=== PATIENT | female | born 1965 | race Caucasian/White ===

== ENCOUNTER 2020-07-04 15:24 | Outpatient (REF) | payer MEDICARE, MEDICAID, SELFPAY ==
[2020-07-04 18:03] LABS: Hematocrit 44.2 % (37-47); Hemoglobin 14.4 g/dl (12.0-16.0); Mean Corpuscular HGB Conc 32.6 g/dl (31.0-35.0); Mean Corpuscular Hemoglobin 31.2 pg (27.0-33.0); Mean Corpuscular Volume 95.9 fL (80-98); Mean Platelet Volume 10.5 fL (9.4-12.3); Platelet Count 266 X10*3/uL (160-400); Red Blood Count 4.61 X10*6/uL (4.20-5.50); Red Cell Distribution Width 12.2 % (11.0-16.0); White Blood Count 7.9 X10*3/uL (4.8-10.8)
[2020-07-04 18:23] LABS: Alanine Aminotransferase 17 U/L (0-31); Albumin Level 4.4 g/dL (3.5-5.0); Alkaline Phosphatase 90 U/L (39-117); Anion Gap 11 (12-20); Aspartate Amino Transferase 17 U/L (5-31); Bilirubin Total 0.3 mg/dL (0.0-1.0); Blood Urea Nitrogen 18 mg/dL (9-16); Calcium 9.1 mg/dL (8.4-10.2); Carbon Dioxide 31 mmol/L (22-29); Chloride 102 mmol/L (96-108); Cholesterol 238 mg/dL; Estimated Glomerular Filt Rate > 60; Glucose Fasting 91 mg/dL (60-99); HDL Cholesterol 58 mg/dL; LDL Cholesterol Calculated 136 mg/dl; Potassium 4.3 mmol/L (3.3-5.1); Sodium 140 mmol/L (135-145); Total Protein 7.1 g/dL (6.5-8.0); Triglycerides 220 mg/dL
[2020-07-06 08:24] LABS: SARS COV2 IgG Negative (Negative)
== END 2020-07-04 15:25 | disposition home or self-care (01) ==
LOC: HO.MANLDS 15:24
PROVIDERS: PCP Internal Medicine; Visit Provider Internal Medicine
DX: J45.909 Unspecified asthma, uncomplicated (principal); E78.00 Pure hypercholesterolemia, unspecified; R50.9 Fever, unspecified; Z01.84 Encounter for antibody response examination
CPT/HCPCS: 36415; 80053; 80061; 85027; 86769

== ENCOUNTER 2020-11-12 07:54 | Outpatient (REF) | payer MEDICARE, MEDICAID, SELFPAY ==
--- NOTE | ~2020-11-12 | US_ITS ---
EXAMINATION: US RETROPERITONEAL LIMITED (RENAL ONLY) CLINICAL INFORMATION: Renal stones. COMPARISON: Renal ultrasound 12/31/2019 and 01/03/2019. KUB 12/06/2018 and 11/15/2018. CT abdomen and pelvis 10/30/2018. TECHNIQUE: Real-time imaging of the kidneys. FINDINGS: RIGHT KIDNEY: 11.2 x 4.3 x 5.4 cm (SAG x AP x TRV). The kidney is normal in size, contour, and echogenicity. Renal cortical thickness is normal. No calculi or focal parenchymal lesions. No hydronephrosis. LEFT KIDNEY: 12.3 x 5.2 x 4.6 cm (SAG x AP x TRV). The kidney is normal in size, contour, and echogenicity. Renal cortical thickness is normal. No focal parenchymal lesions or hydronephrosis. There is an echogenic stone or calcification in the upper pole measuring 3 x 3 mm and the lower pole measuring 3 x 3 mm. There is no shadowing or caliectasis. US/US renal BI IMPRESSION: Small echogenic calcification or tiny stone in the upper and lower pole left kidney. No caliectasis. The right kidney is unremarkable.
== END 2020-11-12 07:55 | disposition home or self-care (01) ==
LOC: HO.US 07:54
PROVIDERS: PCP Internal Medicine; Visit Provider Urology
DX: N20.0 Calculus of kidney (principal)
CPT/HCPCS: 76775

== ENCOUNTER → 2020-12-17 13:11 | Outpatient (BNVA) | payer MEDICARE, MEDICAID, SELFPAY | PROVIDERS: PCP Internal Medicine; Visit Provider Urology | CPT/HCPCS: Q3014 ==

== ENCOUNTER 2021-02-20 10:06 | Outpatient (REF) | payer MEDICARE, MEDICAID, SELFPAY ==
[2021-02-20 14:10] LABS: MANUAL DIFF FLAG NO
[2021-02-20 14:26] LABS: Alanine Aminotransferase 26 U/L (0-31); Albumin Level 4.3 g/dL (3.5-5.0); Alkaline Phosphatase 58 U/L (39-117); Anion Gap 13 (12-20); Aspartate Amino Transferase 17 U/L (5-31); Bilirubin Total 0.4 mg/dL (0.0-1.0); Blood Urea Nitrogen 20 mg/dL (9-16); Calcium 9.7 mg/dL (8.4-10.2); Carbon Dioxide 28 mmol/L (22-29); Chloride 104 mmol/L (96-108); Estimated Glomerular Filt Rate > 60; Glucose Fasting 96 mg/dL (60-99); Potassium 4.4 mmol/L (3.3-5.1); Sodium 141 mmol/L (135-145); Total Protein 6.9 g/dL (6.5-8.0)
[2021-02-20 14:30] LABS: Basophils Percent Auto 0.1 % (0-2); Eosinophils Percent Auto 0.1 % (0-4); Hematocrit 43.7 % (37-47); Hemoglobin 14.4 g/dl (12.0-16.0); Imm Gran Abs Auto 0.03 X10*3/uL (0.00-0.03); Imm Gran Pct Auto 0.4 % (0.0-0.4); Lymphocytes Absolute Auto 1.6 X10*3/uL (1.2-4.9); Lymphocytes Percent Auto 19.6 % (20-40); Mean Corpuscular Hemoglobin 30.9 pg (27.0-33.0); Mean Corpuscular Volume 93.8 fL (80-98); Mean Platelet Volume 10.6 fL (9.4-12.3); Monocytes Absolute Auto 0.7 X10*3/uL (0.1-1.2); Monocytes Percent Auto 8.2 % (2-11); Neutrophils Absolute Auto 5.8 X10*3/uL (2.0-8.3); Neutrophils Percent Auto 71.6 % (45-73); Platelet Count 275 X10*3/uL (160-400); Red Blood Count 4.66 X10*6/uL (4.20-5.50); Red Cell Distribution Width 12.2 % (11.0-16.0); White Blood Count 8.2 X10*3/uL (4.8-10.8)
[2021-02-25 14:01] LABS: Vitamin D 25-OH, D2 <4 ng/mL; Vitamin D 25-OH, D3 44 ng/mL; Vitamin D 25-OH, Total 44 ng/mL (30-100)
== END 2021-02-20 10:07 | disposition home or self-care (01) ==
LOC: HO.MANLDS 10:06
PROVIDERS: PCP Internal Medicine; Visit Provider Internal Medicine
DX: R60.0 Localized edema (principal)
CPT/HCPCS: 36415; 80053; 82306; 85025

== ENCOUNTER 2021-03-18 05:54 | Day surgery (SDC) | payer MEDICARE, MEDICAID, SELFPAY ==
[2021-03-11 16:28] VITALS: BMI 41.1
--- NOTE | 2021-03-17 11:56 | P.CONAN_ITS ---
Documented by User: Melina Avery NP 03/17/21 11:58 HPI - Anesthesia Eval Consult details Narrative: 55yo F for Left Lithotripsy ESW Last ESWL 2018 with MAC Multiple allergies PMFSH Active Problems Active Problems: All Active Problems (Updated 12/17/20 @ 13:20 by Og Mejía MD) Renal stones (Acute) Past Medical History Medical History (Updated 12/17/20 @ 13:20 by Og Mejía MD) Asthma Bipolar 1 disorder Borderline high blood pressure High cholesterol Renal stones Surgical History Surgical History (Updated 12/17/20 @ 12:52 by USMAN Lopez) History of surgery Social History Social History (Updated 12/17/20 @ 12:52 by USMAN Lopez) Patient Tobacco Use Status: Never used Tobacco Have you been hit, kicked, punched, or otherwise hurt by someone within the past year? If so, by whom?: No Are you DNR?: No Advance Directives: No Advance Directives Information Provided: Yes Recently lost weight without trying: No Nutrition Risks: No Nutritional Risk Meds Allergies Allergy/AdvReac Type Severity Reaction Status Date / Time bee pollen [BEE STINGS] Allergy Severe THROAT Verified 12/17/20 12:50 CLOSES walnut Allergy Severe THROAT Verified 12/17/20 12:50 SWELLING Sulfa (Sulfonamide Allergy Intermediate HIVES Verified 12/17/20 12:50 Antibiotics) [SULFA(SULFONAMIDE ANTIBIOTICS)] Tetracyclines Allergy Intermediate NAUSEA/VOMITING/RASH Verified 12/17/20 12:50 [Tetracycline Analogues] TO CYCLINES levofloxacin [From LEVAQUIN] AdvReac Intermediate CONFUSION/A Verified 12/17/20 12:50 GITATION cycline antibiotics Allergy Unknown Unknown Uncoded 12/17/20 12:50 walnuts Allergy Unknown Unknown Uncoded 12/17/20 12:50 Home Medications Medication Instructions Recorded Confirmed Last Taken Type montelukast 10 mg tablet 10 mg PO DAILY 12/17/20 Unknown History simvastatin 10 mg tablet 10 mg PO DAILY 12/17/20 Unknown History valsartan 160 mg tablet 160 mg PO DAILY 12/17/20 Unknown History valsartan 320 mg tablet 320 mg PO DAILY 12/17/20 Unknown History Exam Exam Date and Time: March 17, 2021 1156 Height,Weight and Vital Signs: Height 5 ft 4 in Weight 108.862 kg Assessment and Plan Assessment Anesthesia Assessment: Chart Reviewed Documented by User: Nita Jean-Baptiste MD 03/18/21 07:00 [facility], [facility] Past Medical History Medical History (Updated 12/17/20 @ 13:20 by Og Mejía MD) Asthma Bipolar 1 disorder Borderline high blood pressure High cholesterol Renal stones Family History Family history of problems with anesthesia: No Surgical History Surgical History (Updated 12/17/20 @ 12:52 by USMAN Lopez) History of surgery History of Problems with Anesthesia: No Social History Social History (Updated 12/17/20 @ 12:52 by USMAN Lopez) Patient Tobacco Use Status: Never used Tobacco Have you been hit, kicked, punched, or otherwise hurt by someone within the past year? If so, by whom?: No Are you DNR?: No Advance Directives: No Advance Directives Information Provided: Yes Recently lost weight without trying: No Nutrition Risks: No Nutritional Risk Meds Allergies Allergy/AdvReac Type Severity Reaction Status Date / Time bee pollen [BEE STINGS] Allergy Severe THROAT Verified 12/17/20 12:50 CLOSES walnut Allergy Severe THROAT Verified 12/17/20 12:50 SWELLING Sulfa (Sulfonamide Allergy Intermediate HIVES Verified 12/17/20 12:50 Antibiotics) [SULFA(SULFONAMIDE ANTIBIOTICS)] Tetracyclines Allergy Intermediate NAUSEA/VOMITING/RASH Verified 12/17/20 12:50 [Tetracycline Analogues] TO CYCLINES levofloxacin [From LEVAQUIN] AdvReac Intermediate CONFUSION/A Verified 12/17/20 12:50 GITATION cycline antibiotics Allergy Unknown Unknown Uncoded 12/17/20 12:50 walnuts Allergy Unknown Unknown Uncoded 12/17/20 12:50 Home Medications Medication Instructions Recorded Confirmed Last Taken Type montelukast 10 mg tablet 10 mg PO DAILY 12/17/20 Unknown History simvastatin 10 mg tablet 10 mg PO DAILY 12/17/20 Unknown History valsartan 160 mg tablet 160 mg PO DAILY 12/17/20 Unknown History valsartan 320 mg tablet 320 mg PO DAILY 12/17/20 Unknown History Exam Airway Partial: Upper Heart: rrr Lungs: cta Assessment and Plan Assessment Anesthesia Assessment: Anesthesia Plan Discussed and Chart Reviewed Final Anesthetic Review Family History of Problems with Anesthesia: No History of Problems with Anesthesia: No NPO: Yes ASA Class: II Final Preanesthetic Review: No Changes in Pt Med Stat, Meds/Allgs Chart Reviewed and Consent Obtained/Reviewed Patient Risk: Intermediate Procedure Risk: Intermediate Anesthetic Plan Anesthetic Plan: MAC: Disposition: Standard PACU
--- NOTE | ~2021-03-18 | XR_ITS ---
EXAMINATION: XR ABDOMEN KUB CLINICAL INDICATION: Nephrolithiasis COMPARISON: Abdominal radiograph 12/06/2018, renal ultrasound 11/12/2020 TECHNIQUE: AP view of the abdomen. FINDINGS: The bowel gas pattern is normal with no evidence of ileus or obstruction. No unusual soft tissue calcifications are noted. Previously seen left-sided renal calculi on the prior ultrasound are not definitely identified on the current study. There are small phleboliths in the pelvis. The bones are unremarkable. XR/XR KUB IMPRESSION: Nonobstructive bowel gas pattern. No definite renal calculi are visualized on the current study.
[2021-03-18 06:22] VITALS: BP 146/101; PULSE 62; RESP 17; TEMP 36.6; O2SAT 99
[2021-03-18] MEDS: Lactated Ringers 1,000 ML 100 ML IVCONT (06:35)
[2021-03-18] MEDS: Acetaminophen 325 MG TABLET 650 MG PO (06:36)
--- NOTE | 2021-03-18 07:31 | MHC.SHP ---
Pre-Procedural Eval Section A Date of Service: 03/18/21 Section B Chief Complaint: kidney stone Details of Present Illness: left renal stones Relevant Social History: None Present Medications: see Short Stay Collaborative assessment Medical History: Significant History History of Previous Operations: Relevant previous surgery/procedure and date(s) Allergies: Allergies Allergy/AdvReac Type Severity Reaction Status Date / Time bee pollen [BEE STINGS] Allergy Severe THROAT Verified 12/17/20 12:50 CLOSES walnut Allergy Severe THROAT Verified 12/17/20 12:50 SWELLING Sulfa (Sulfonamide Allergy Intermediate HIVES Verified 12/17/20 12:50 Antibiotics) [SULFA(SULFONAMIDE ANTIBIOTICS)] Tetracyclines Allergy Intermediate NAUSEA/VOMITING/RASH Verified 12/17/20 12:50 [Tetracycline Analogues] TO CYCLINES levofloxacin [From LEVAQUIN] AdvReac Intermediate CONFUSION/A Verified 12/17/20 12:50 GITATION cycline antibiotics Allergy Unknown Unknown Uncoded 12/17/20 12:50 walnuts Allergy Unknown Unknown Uncoded 12/17/20 12:50 Review of Systems Sugical H&P ROS: Negative: Constitution, Cardiovascular, Respiratory, Neurological, Psychiatric, Hem-Onc, Allergic/Immunologic, Gastrointestinal, Genitourinary, Musculoskeletal, Integumentary, Endocrine and Eyes/Ears/Nose/Throat Exam Surgical H&P Exam: Normal: HEENT, Normal: Heart, Normal: Lungs, Normal: Extremities, Normal: Abdomen, Normal: Skin and Normal: Neurological Plan Diagnosis/Plan: Unchanged (left ESWL) I have reviewed the history and physical and performed a pertinent physical examination on my patient. No changes have occurred unless specified.
--- NOTE | 2021-03-18 07:43 | P.OP_ITS ---
Operative Note Operative Note Date of Service: 03/18/21 Narrative: PreOperative Diagnosis: Left Renal stones Post Operative Diagnosis: Left Renal stones Procedure: Left ESWL Surgeon: Dr Og Mejía Anesthesia: mac/sedation Indications for procedure: The patient understands ESWL may be a staged procedure and subsequent intervention may be required based on imaging after ESWL. They also understand there is a risk of bleeding to the kidney, infection, damage to adjacent organs, and stone migration following the procedure. - left ultrasound with 4 mm mid pole stone Procedure: After informed consent was verified the patient was brought to the operating room and placed in a supine position. Anesthesia was performed per protocol. Safety pause time-out was performed. Imaging was displayed in the room and laterality confirmed. ESWL was performed. The 1st 500 shocks were performed at 60 hertz. These were performed with increasing power. Once maximum power was reached the rate was increased to 180 hertz. A total of 2500 shocks were given. Targetted imaging with ultrasound/fluoroscopy showed stone smudging suggestive of disintegration. The patient tolerated the procedure well and was transferred to the recovery area upon completion. Post procedure imaging will be organized. There was no ev idence for flank discoloration.
[2021-03-18 08:14] VITALS: BP 142/93; PULSE 71; RESP 12; TEMP 36.4; O2SAT 97
[2021-03-18 08:29] VITALS: BP 149/94; PULSE 60; RESP 17; TEMP 36.4; O2SAT 98
== END 2021-03-18 08:55 | disposition home or self-care (01) ==
LOC: HO.SSS 05:54
PROVIDERS: PCP Internal Medicine; Visit Provider Urology
PROC: (CPT 50590; principal; 2021-03-18 07:30)
DX: N20.0 Calculus of kidney (principal); Z87.442 Personal history of urinary calculi; R03.0 Elevated blood-pressure reading, without diagnosis of hypertension; J45.909 Unspecified asthma, uncomplicated; Z79.899 Other long term (current) drug therapy; Z88.1 Allergy status to other antibiotic agents; Z88.2 Allergy status to sulfonamides
CPT/HCPCS: 50590; 74018; J1100; J2250; J2405

== ENCOUNTER 2021-04-10 08:07 | Outpatient (REF) | payer MEDICARE, MEDICAID, SELFPAY ==
--- NOTE | ~2021-04-10 | US_ITS ---
EXAMINATION: US RETROPERITONEAL LIMITED (RENAL ONLY) CLINICAL INFORMATION: Calculus of kidney. COMPARISON: X-ray abdomen KUB 03/18/2021 and 12/06/2018. Renal ultrasound 11/12/2020 and 12/31/2019. CT abdomen and pelvis 10/30/2018. TECHNIQUE: Real-time imaging of the kidneys. FINDINGS: RIGHT KIDNEY: 11.0 x 4.8 x 5.0 cm (SAG x AP x TRV). The kidney is normal in size, contour, and echogenicity. Renal cortical thickness is normal. No calculi or focal parenchymal lesions. No hydronephrosis. LEFT KIDNEY: 13.4 x 6 x 5 cm (SAG x AP x TRV). The kidney is normal in size, contour, and echogenicity. Renal cortical thickness is normal. There are 2 stones measuring 5 x 3 x 6 mm and 5 x 3 mm in the lower pole. No focal parenchymal lesions or hydronephrosis. US/US renal BI IMPRESSION: Left renal stones.
== END 2021-04-10 08:08 | disposition home or self-care (01) ==
LOC: HO.US 08:07
PROVIDERS: PCP Internal Medicine; Visit Provider Urology
DX: N20.0 Calculus of kidney (principal)
CPT/HCPCS: 76775

== ENCOUNTER → 2021-04-15 13:22 | Outpatient (BNVA) | payer MEDICARE, MEDICAID, SELFPAY | PROVIDERS: PCP Internal Medicine; Visit Provider Urology | DX: N20.0 Calculus of kidney (principal) | CPT/HCPCS: 99212; Q3014 ==

== ENCOUNTER 2021-09-03 13:21 | Outpatient (REF) | payer MEDICARE, MEDICAID, SELFPAY ==
--- NOTE | ~2021-09-03 | US_ITS ---
EXAMINATION: US RETROPERITONEAL LIMITED (RENAL ONLY) CLINICAL INFORMATION: Calculus of kidney. COMPARISON: US retroperitoneal limited (renal only) 04/10/2021 and 11/12/2020. XR abdomen KUB 09/03/2021 and 03/18/2021. CT abdomen and pelvis 10/30/2018. TECHNIQUE: Real-time imaging of the kidneys. FINDINGS: RIGHT KIDNEY: 11.4 x 4.4 x 5.6 cm (SAG x AP x TRV). The kidney is normal in size, contour, and echogenicity. Renal cortical thickness is normal. No calculi or focal parenchymal lesions. No hydronephrosis. LEFT KIDNEY: 12.8 x 4.9 x 4.6 cm (SAG x AP x TRV). The kidney is normal in size, contour, and echogenicity. Renal cortical thickness is normal. There are 2 stones in the lower pole measuring 3 and 4 mm. No focal parenchymal lesions or hydronephrosis. US/US renal BI IMPRESSION: Small left renal stones..
--- NOTE | ~2021-09-03 | XR_ITS ---
EXAMINATION: XR ABDOMEN KUB CLINICAL INDICATION: Calculus of the ureter. COMPARISON: None TECHNIQUE: AP view of the abdomen. FINDINGS: The bowel gas pattern is normal with no evidence of ileus or obstruction. No unusual soft tissue calcifications are noted. There is degenerative spondylosis lower dorsal and upper lumbar spine. No lytic or sclerotic process seen.. XR/XR KUB IMPRESSION: Degenerative spondylosis lower dorsal and upper lumbar spine.
== END 2021-09-03 13:22 | disposition home or self-care (01) ==
LOC: HO.US 13:21
PROVIDERS: Visit Provider Urology
DX: N20.1 Calculus of ureter (principal); N20.0 Calculus of kidney
CPT/HCPCS: 74018; 76775

== ENCOUNTER 2021-10-07 11:53 | Outpatient (REF) | payer MEDICARE, MEDICAID, SELFPAY ==
[2021-10-07 14:00] LABS: MANUAL DIFF FLAG NO
[2021-10-07 14:18] LABS: Estimated Average Glucose 108 mg/dL; Hemoglobin A1c % 5.4 %
[2021-10-07 14:26] LABS: Basophils Absolute Auto 0.1 X10*3/uL (0.0-0.2); Eosinophils Absolute Auto 0.3 X10*3/uL (0.0-0.4); Eosinophils Percent Auto 3.5 % (0-4); Hematocrit 43.8 % (37.0-47.0); Hemoglobin 14.2 g/dl (12.0-16.0); Imm Gran Abs Auto 0.02 X10*3/uL (0.00-0.03); Imm Gran Pct Auto 0.3 % (0.0-0.4); Lymphocytes Absolute Auto 1.4 X10*3/uL (1.2-4.9); Lymphocytes Percent Auto 19.6 % (20-40); Mean Corpuscular HGB Conc 32.4 g/dl (31.0-35.0); Mean Corpuscular Hemoglobin 31.3 pg (27.0-33.0); Mean Corpuscular Volume 96.7 fL (80.0-98.0); Mean Platelet Volume 10.6 fL (9.4-12.3); Monocytes Absolute Auto 0.6 X10*3/uL (0.1-1.2); Neutrophils Absolute Auto 4.7 x10*3/uL (2.0-8.3); Neutrophils Percent Auto 66.6 % (45-73); Platelet Count 255 X10*3/uL (160-400); Red Blood Count 4.53 X10*6/uL (4.20-5.50); Red Cell Distribution Width 12.2 % (11.0-16.0); White Blood Count 7.1 X10*3/uL (4.8-10.8)
[2021-10-07 14:38] LABS: Alanine Aminotransferase 29 U/L (0-31); Albumin Level 4.2 g/dL (3.5-5.0); Alkaline Phosphatase 65 U/L (39-117); Anion Gap 14 (12-20); Aspartate Amino Transferase 20 U/L (5-31); Bilirubin Total 0.4 mg/dL (0.0-1.0); Blood Urea Nitrogen 15 mg/dL (9-16); Calcium 9.4 mg/dL (8.4-10.2); Carbon Dioxide 30 mmol/L (22-29); Chloride 106 mmol/L (96-108); Cholesterol 198 mg/dL; Estimated Glomerular Filt Rate > 60; Glucose Random 93 mg/dL (60-115); HDL Cholesterol 51 mg/dL; LDL Cholesterol Calculated 118 mg/dl; Potassium 4.8 mmol/L (3.3-5.1); Sodium 145 mmol/L (135-145); Total Protein 6.8 g/dL (6.5-8.0); Triglycerides 148 mg/dL
[2021-10-07 14:52] LABS: Thyroid Stimulating Hormone 0.96 uIU/mL (0.32-4.0); Vitamin D 25-OH Total 30.9 ng/mL (>30)
== END 2021-10-07 11:54 | disposition home or self-care (01) ==
LOC: HO.MANLDS 11:53
PROVIDERS: Visit Provider Internal Medicine
DX: I10 Essential (primary) hypertension (principal)
CPT/HCPCS: 36415; 80053; 80061; 82306; 83036; 84443; 85025

== ENCOUNTER → 2021-10-13 12:50 | Outpatient (BNVA) | payer MEDICARE, MEDICAID, SELFPAY | PROVIDERS: PCP Internal Medicine; Visit Provider Urology | DX: N20.0 Calculus of kidney (principal) | CPT/HCPCS: 99212 ==

== ENCOUNTER 2022-05-10 11:11 | Outpatient (REF) | payer MEDICARE, MEDICAID, SELFPAY ==
[2022-05-10 14:00] LABS: MANUAL DIFF FLAG NO
[2022-05-10 14:08] LABS: Basophils Absolute Auto 0.1 X10*3/uL (0.0-0.2); Basophils Percent Auto 0.9 % (0-2); Eosinophils Absolute Auto 0.2 X10*3/uL (0.0-0.4); Eosinophils Percent Auto 2.4 % (0-4); Hematocrit 46.2 % (37.0-47.0); Hemoglobin 14.7 g/dl (12.0-16.0); Imm Gran Abs Auto 0.03 X10*3/uL (0.00-0.03); Imm Gran Pct Auto 0.4 % (0.0-0.4); Lymphocytes Absolute Auto 1.4 X10*3/uL (1.2-4.9); Mean Corpuscular HGB Conc 31.8 g/dl (31.0-35.0); Mean Corpuscular Hemoglobin 30.9 pg (27.0-33.0); Mean Corpuscular Volume 97.1 fL (80.0-98.0); Mean Platelet Volume 10.8 fL (9.4-12.3); Monocytes Absolute Auto 0.6 X10*3/uL (0.1-1.2); Monocytes Percent Auto 7.8 % (2-11); Neutrophils Absolute Auto 4.8 x10*3/uL (2.0-8.3); Neutrophils Percent Auto 68.5 % (45-73); Platelet Count 248 X10*3/uL (160-400); Red Blood Count 4.76 X10*6/uL (4.20-5.50); Red Cell Distribution Width 12.4 % (11.0-16.0)
[2022-05-10 14:18] LABS: Estimated Average Glucose 111 mg/dL; Hemoglobin A1c % 5.5 %
[2022-05-10 14:19] LABS: Alanine Aminotransferase 30 U/L (0-31); Albumin Level 4.3 g/dL (3.5-5.0); Alkaline Phosphatase 71 U/L (39-117); Anion Gap 13 (12-20); Aspartate Amino Transferase 23 U/L (5-31); Bilirubin Total 0.6 mg/dL (0.0-1.0); Blood Urea Nitrogen 14 mg/dL (9-16); Calcium 9.6 mg/dL (8.4-10.2); Carbon Dioxide 30 mmol/L (22-29); Chloride 105 mmol/L (96-108); Cholesterol 196 mg/dL; Estimated Glomerular Filt Rate > 60; Glucose Random 101 mg/dL (60-115); HDL Cholesterol 53 mg/dL; LDL Cholesterol Calculated 121 mg/dl; Potassium 4.6 mmol/L (3.3-5.1); Sodium 143 mmol/L (135-145); Total Protein 6.7 g/dL (6.5-8.0); Triglycerides 113 mg/dL
== END 2022-05-10 11:12 | disposition home or self-care (01) ==
LOC: HO.MANLDS 11:11
PROVIDERS: Visit Provider Internal Medicine
DX: Z13.1 Encounter for screening for diabetes mellitus (principal); Z83.3 Family history of diabetes mellitus
CPT/HCPCS: 36415; 80053; 80061; 83036; 85025

== ENCOUNTER 2022-09-20 10:24 | Outpatient (REF) | payer MEDICARE, MEDICAID, SELFPAY ==
--- NOTE | ~2022-09-20 | US_ITS ---
EXAMINATION: US RETROPERITONEAL LIMITED (RENAL ONLY) CLINICAL INFORMATION: Calculus of kidney. COMPARISON: Ultrasound retroperitoneal limited (renal only) 09/03/2021. X-ray abdomen KUB 09/03/2021. Ultrasound retroperitoneal limited (renal only) 04/10/2021. X-ray abdomen KUB 03/18/2021. CT abdomen and pelvis without contrast 03/03/2018. TECHNIQUE: Real-time imaging of the kidneys. FINDINGS: RIGHT KIDNEY: 11.5 x 5.0 x 4.7 cm (SAG x AP x TRV). The kidney is normal in size, contour, and echogenicity. Renal cortical thickness is normal. No calculi or focal parenchymal lesions. No hydronephrosis. LEFT KIDNEY: 13.3 x 5.1 x 4.2 cm (SAG x AP x TRV). The kidney is normal in size, contour, and echogenicity. Renal cortical thickness is normal. No focal parenchymal lesions or hydronephrosis. At the lower pole, 2 adjacent 5 mm nonobstructing calculi are seen. US/US renal BI IMPRESSION: 2 adjacent 5 mm nonobstructing calculi are seen at the lower pole of the left kidney. No right renal calculus is seen. No hydronephrosis is noted bilaterally.
== END 2022-09-20 10:25 | disposition home or self-care (01) ==
LOC: HO.US 10:24
PROVIDERS: PCP Internal Medicine; Visit Provider Urology
DX: N20.0 Calculus of kidney (principal)
CPT/HCPCS: 76775

== ENCOUNTER → 2022-10-19 10:27 | Outpatient (BNVA) | payer MEDICARE, MEDICAID, SELFPAY | PROVIDERS: PCP Internal Medicine; Visit Provider Urology | DX: N20.0 Calculus of kidney (principal) | CPT/HCPCS: 99212 ==

== ENCOUNTER 2022-11-17 06:24 | Day surgery (SDC) | payer MEDICARE, MEDICAID, SELFPAY ==
[2022-11-15 09:53] VITALS: BMI 44.1
--- NOTE | 2022-11-16 10:04 | HO.ANESPROP2 ---
HPI - Anesthesia Eval Consult details Narrative: 57yo F for Left ESWL Last ESWL 2020 with TIVA PMFSH Active Problems Active Problems: All Active Problems (Updated 12/17/20 @ 13:20 by Og Mejía MD) Renal stones (Acute) Past Medical History Medical History Asthma Bipolar 1 disorder Borderline high blood pressure High cholesterol Renal stones Family History Family history of problems with anesthesia: No Surgical History Surgical History (Updated 11/15/22 @ 09:51 by Yaneth Murphy RN) History of Hx of appendectomy Hx of lithotripsy Hx of reduction mammoplasty History of Problems with Anesthesia: No Social History Social History Patient Tobacco Use Status: Never used Tobacco Meds Allergies Allergy/AdvReac Type Severity Reaction Status Date / Time bee pollen [BEE STINGS] Allergy Severe THROAT Verified 10/19/22 10:31 CLOSES walnut Allergy Severe THROAT Verified 10/19/22 10:31 SWELLING Sulfa (Sulfonamide Allergy Intermediate HIVES Verified 10/19/22 10:31 Antibiotics) [SULFA(SULFONAMIDE ANTIBIOTICS)] Tetracyclines Allergy Intermediate NAUSEA/VOMITING/RASH Verified 10/19/22 10:31 [Tetracycline Analogues] TO CYCLINES levofloxacin [From LEVAQUIN] AdvReac Intermediate CONFUSION/A Verified 10/19/22 10:31 GITATION Home Medications Medication Instructions Recorded Confirmed Last Taken Type montelukast 10 mg tablet 10 mg PO DAILY 12/17/20 11/15/22 Unknown History valsartan 160 mg tablet 160 mg PO DAILY 12/17/20 11/15/22 Unknown History albuterol sulfate 90 mcg/actuation 2 puff PO Q4H 10/13/21 11/15/22 Unknown History aerosol inhaler aripiprazole 10 mg tablet 10 mg PO QAM 10/13/21 11/15/22 Unknown History diazepam 5 mg tablet 5 mg PO BEDTIME 10/13/21 10/13/21 Unknown History escitalopram oxalate 10 mg tablet 10 mg PO BEDTIME 10/13/21 11/15/22 Unknown History fluticasone furoate 100 1 ea PO DAILY 10/13/21 11/15/22 Unknown History mcg-vilanterol 25 mcg/dose inhalation powder (Breo Ellipta) oxycodone-acetaminophen 5 mg-325 1 tab PO Q6H PRN pain 11/15/22 11/15/22 Unknown History mg tablet rosuvastatin 10 mg tablet 10 mg PO DAILY 11/15/22 11/15/22 Unknown History Exam Exam Date and Time: November 16, 2022 1004 Height,Weight and Vital Signs: Height 5 ft 3 in Weight 112.945 kg Pertinent Lab Results Pertinent Lab Results: Laboratory Tests 05/10/22 05/10/22 11:23 11:23 WBC 7.0 Hgb 14.7 Hct 46.2 Plt Count 248 Sodium 143 Potassium 4.6 Chloride 105 Carbon Dioxide 30 H BUN 14 Creatinine 0.79 Assessment and Plan Assessment Anesthesia Assessment: Chart Reviewed Final Anesthetic Review Family History of Problems with Anesthesia: No History of Problems with Anesthesia: No
[2022-11-17] VITALS (9 sets, daily range): BP systolic 148–178; BP diastolic 89–108; PULSE 61–92; RESP 11–17; TEMP 36.6–36.8; O2SAT 96–99
--- NOTE | ~2022-11-17 | XR_ITS ---
EXAMINATION: XR ABDOMEN KUB CLINICAL INDICATION: Left kidney stone COMPARISON: 09/03/2021 TECHNIQUE: AP view of the abdomen. FINDINGS: There are a couple questionable 3-4 mm calculi overlying the lower left kidney, with assessment limited due to overlying bowel contents. No definite right renal calculi. Bowel gas pattern is nonobstructive. A few calcifications in the pelvis are favored to represent phleboliths. Included lung bases are well-aerated. Multilevel endplate osteophytes are noted in the spine. XR/XR KUB IMPRESSION: Questionable 3-4 mm calculi in the lower left kidney, with assessment limited due to overlying bowel contents.
[2022-11-17] MEDS: Lactated Ringers 1,000 ML 100 ML IVCONT (07:11)
--- NOTE | 2022-11-17 07:34 | MHC.SHP ---
Pre-Procedural Eval Section A Date of Service: 11/17/22 The patient is an INPATIENT: No Changes since office visit: No Cold of Flu in the past 2 weeks, No New Medical Problems, No Changes in Medication and No Patient answered all questions The History & Physical has been completed within 30 days and I have reviewed it.: No Section B Chief Complaint: Calculus of kidney Details of Present Illness: recurrent stones Relevant Social History: None Present Medications: see Short Stay Collaborative assessment Medical History: Significant History History of Previous Operations: Relevant previous surgery/procedure and date(s) Allergies: Allergies Allergy/AdvReac Type Severity Reaction Status Date / Time bee pollen [BEE STINGS] Allergy Severe THROAT Verified 10/19/22 10:31 CLOSES walnut Allergy Severe THROAT Verified 10/19/22 10:31 SWELLING Sulfa (Sulfonamide Allergy Intermediate HIVES Verified 10/19/22 10:31 Antibiotics) [SULFA(SULFONAMIDE ANTIBIOTICS)] Tetracyclines Allergy Intermediate NAUSEA/VOMITING/RASH Verified 10/19/22 10:31 [Tetracycline Analogues] TO CYCLINES levofloxacin [From LEVAQUIN] AdvReac Intermediate CONFUSION/A Verified 10/19/22 10:31 GITATION Review of Systems Sugical H&P ROS: Negative: Constitution, Cardiovascular, Respiratory, Neurological, Psychiatric, Hem-Onc, Allergic/Immunologic, Gastrointestinal, Genitourinary, Musculoskeletal, Integumentary, Endocrine and Eyes/Ears/Nose/Throat Exam Surgical H&P Exam: Normal: HEENT, Normal: Heart, Normal: Lungs, Normal: Extremities, Normal: Abdomen, Normal: Skin and Normal: Neurological Plan Diagnosis/Plan: Unchanged (left ESWL) I have reviewed the history and physical and performed a pertinent physical examination on my patient. No changes have occurred unless specified. Time Spent With Patient Time: Total time managing care of this patient today ____ minutes.
--- NOTE | 2022-11-17 07:43 | HO.ANESPROP2 ---
[facility] Active Problems Active Problems: All Active Problems (Updated 12/17/20 @ 13:20 by Og Mejía MD) Renal stones (Acute) Past Medical History Medical History Asthma Bipolar 1 disorder Borderline high blood pressure High cholesterol Renal stones Functional capacity: independent ambulation Family History Family history of problems with anesthesia: No Surgical History Surgical History History of Hx of appendectomy Hx of lithotripsy Hx of reduction mammoplasty History of Problems with Anesthesia: No Social History Social History Patient Tobacco Use Status: Never used Tobacco Are you DNR?: No Advance Directives: No Advance Directives Information Provided: Yes Nutrition Risks: No Nutritional Risk Meds Allergies Allergy/AdvReac Type Severity Reaction Status Date / Time bee pollen [BEE STINGS] Allergy Severe THROAT Verified 10/19/22 10:31 CLOSES walnut Allergy Severe THROAT Verified 10/19/22 10:31 SWELLING Sulfa (Sulfonamide Allergy Intermediate HIVES Verified 10/19/22 10:31 Antibiotics) [SULFA(SULFONAMIDE ANTIBIOTICS)] Tetracyclines Allergy Intermediate NAUSEA/VOMITING/RASH Verified 10/19/22 10:31 [Tetracycline Analogues] TO CYCLINES levofloxacin [From LEVAQUIN] AdvReac Intermediate CONFUSION/A Verified 10/19/22 10:31 GITATION Active Medications: Current Medications Albuterol Sulfate (Albuterol Sulfate (0.083%) 2.5 Mg/3 Ml Vial.Neb) 2.5 mg INHALE ONCE PRN PRN Reason: Shortness of Breath/Wheezing Lactated Ringer's (Lr) 1,000 mls @ 100 mls/hr IVCONT .Q10H PHILL Last Admin: 11/17/22 07:11 Dose: 100 mls/hr Lactated Ringer's (Lr) 1,000 mls @ 999 mls/hr IV .Q1H1M PHILL Stop: 11/17/22 08:30 Home Medications Medication Instructions Recorded Confirmed Last Taken Type montelukast 10 mg tablet 10 mg PO DAILY 12/17/20 11/15/22 Unknown History valsartan 160 mg tablet 160 mg PO DAILY 12/17/20 11/15/22 Unknown History albuterol sulfate 90 mcg/actuation 2 puff PO Q4H 10/13/21 11/15/22 Unknown History aerosol inhaler aripiprazole 10 mg tablet 10 mg PO QAM 10/13/21 11/15/22 Unknown History diazepam 5 mg tablet 5 mg PO BEDTIME 10/13/21 10/13/21 Unknown History escitalopram oxalate 10 mg tablet 10 mg PO BEDTIME 10/13/21 11/15/22 Unknown History fluticasone furoate 100 1 ea PO DAILY 10/13/21 11/15/22 Unknown History mcg-vilanterol 25 mcg/dose inhalation powder (Breo Ellipta) oxycodone-acetaminophen 5 mg-325 1 tab PO Q6H PRN pain 11/15/22 11/15/22 Unknown History mg tablet rosuvastatin 10 mg tablet 10 mg PO DAILY 11/15/22 11/15/22 Unknown History Exam Exam Date and Time: November 17, 2022 0743 Height,Weight and Vital Signs: Height 5 ft 3 in Weight 112.945 kg Last Vital Signs Temp 98.3 F 11/17/22 06:42 Pulse 61 11/17/22 06:42 Resp 17 11/17/22 06:42 BP 148/89 H 11/17/22 07:04 Pulse Ox 98 11/17/22 06:42 O2 Del Method Room Air 11/17/22 06:42 Airway Mallampati Class: III TM Dist: >3cm Neck ROM: Full Heart: RRR Lungs: CTA Assessment and Plan Assessment Anesthesia Assessment: Anesthesia Plan Discussed Final Anesthetic Review Family History of Problems with Anesthesia: No History of Problems with Anesthesia: No ASA Class: III Final Preanesthetic Review: Meds/Allgs Chart Reviewed, Consent Obtained/Reviewed and Anes Risks/Benef Reviewed Patient Risk: Intermediate Procedure Risk: Low Anesthetic Plan Anesthetic Plan: GA Disposition: Standard PACU
--- NOTE | 2022-11-17 08:27 | PC.NURSE ---
pt total 1000ml in preop
--- NOTE | 2022-11-17 09:16 | P.OP_ITS ---
Operative Note Operative Note Date of Service: 11/17/22 Narrative: PreOperative Diagnosis: Left Renal stones Post Operative Diagnosis: Left Renal stones Procedure: ESWL Surgeon: Dr Og Mejía Anesthesia: mac/sedation Indications for procedure: The patient understands ESWL may be a staged procedure and subsequent intervention may be required based on imaging after ESWL. Quoted stone clearance rates for a solitary procedure are in the 70-80% range based primarily on stone location. They also understand there is a risk of bleeding to the kidney, infection, damage to adjacent organs, and stone migration following the procedure. - Imaging left 4 mm x 2 Procedure: After informed consent was verified the patient was brought to the operating room and placed in a supine position. Anesthesia was performed per protocol. Safety pause time-out was performed. Imaging was displayed in the room and late rality confirmed. ESWL was performed. The 1st 500 shocks were performed at 60 hertz. These were performed with increasing power. Once maximum power was reached the rate was increased to 180 hertz. A total of 2500 shocks were given. Targeted imaging with ultrasound/fluoroscopy showed stone smudging suggestive of disintegration. Procedure prolonged secondary to patient with vomiting event requiring ET tube placements airway protection. The patient tolerated the procedure well and was transferred to the recovery area upon completion. Post procedure imaging will be organized. There was no evidence for flank discoloration.
[2022-11-17] MEDS: Ketorolac Tromethamine 15 MG/ML VIAL IVPUSH (10:10)
--- NOTE | 2022-11-17 14:01 | HO.POSTANES ---
Post Anesthesia Evaluation Post Anesthesia Evaluation Date of Service: 11/17/22 Vital Signs: Vital Signs Temp Pulse Resp BP Pulse Ox O2 Del Method O2 Flow Rate 11/17/22 10:42 98 F 72 16 169/91 H 96 Room Air 11/17/22 10:27 73 16 169/108 H 97 Room Air 11/17/22 10:12 89 14 178/99 H Nasal Cannula 2 11/17/22 09:57 82 11 L 166/94 H 98 Nasal Cannula 2 11/17/22 09:52 84 12 172/94 H 98 Nasal Cannula 2 11/17/22 09:47 87 12 151/91 H 99 Simple Mask 6 11/17/22 09:42 98 F 92 16 156/92 H 99 Simple Mask 6 11/17/22 07:04 148/89 H 11/17/22 06:42 98.3 F 61 17 98 Room Air Anesthesia: General LMA Mental Status: Awake Pain Control: Satisfactory Nausea/Vomiting: None Hydration: Adequate Anesthesia-Related Issues: No Anes. Related Issues
== END 2022-11-17 11:53 | disposition home or self-care (01) ==
PROVIDERS: PCP Internal Medicine; Visit Provider Urology
PROC: (CPT 50590; principal; 2022-11-17 08:10)
DX: N20.0 Calculus of kidney (principal); R11.10 Vomiting, unspecified; J45.909 Unspecified asthma, uncomplicated; Z88.1 Allergy status to other antibiotic agents; Z88.2 Allergy status to sulfonamides
CPT/HCPCS: 50590; 74018; J0131; J0171; J0330; J1885; J2250; J2550

== ENCOUNTER → 2022-11-17 06:24 | Outpatient (BNV) | payer MEDICARE, MEDICAID, SELFPAY | PROVIDERS: PCP Internal Medicine; Visit Provider Urology | DX: N20.0 Calculus of kidney (principal) | CPT/HCPCS: 50590 ==

== ENCOUNTER 2022-12-22 10:15 | Outpatient (REF) | payer MEDICARE, MEDICAID, SELFPAY ==
--- NOTE | ~2022-12-22 | US_ITS ---
EXAMINATION: US RETROPERITONEAL LIMITED (RENAL ONLY) CLINICAL INFORMATION: Calculus of kidney. COMPARISON: X-ray abdomen KUB 11/17/2022. Ultrasound retroperitoneal limited (renal only) 09/20/2022 and 09/03/2021. X-ray abdomen KUB 09/03/2021. CT abdomen and pelvis without contrast 10/30/2018. TECHNIQUE: Real-time imaging of the kidneys. FINDINGS: RIGHT KIDNEY: 11.3 x 4.7 x 5.3 cm (SAG x AP x TRV). The kidney is normal in size, contour, and echogenicity. Renal cortical thickness is normal. No calculi or focal parenchymal lesions. No hydronephrosis. LEFT KIDNEY: 12.5 x 5.6 x 5.0 cm (SAG x AP x TRV). The kidney is normal in size, contour, and echogenicity. Renal cortical thickness is normal. No focal parenchymal lesions or hydronephrosis. At the lower pole, 5 mm and 4 mm nonobstructing calculi are seen, with twinkle artifact. US/US renal BI IMPRESSION: There are nonobstructing left renal calculi. No right renal calculus is seen. There is no hydronephrosis.
== END 2022-12-22 10:16 | disposition home or self-care (01) ==
LOC: HO.US 10:15
PROVIDERS: PCP Internal Medicine; Visit Provider Urology
DX: N20.0 Calculus of kidney (principal)
CPT/HCPCS: 76775

== ENCOUNTER 2022-12-30 11:06 | Outpatient (AMB) | payer MEDICARE, MEDICAID, SELFPAY ==
--- NOTE | 2022-12-30 11:26 | MHC.OFFVIS ---
Intake Intake Visit Reasons: 6 week eswl/us(set) Intake Note: Patient is present for Follow Up US POST OP Urology Med: Tamsulosin Antibiotic Allergy: Sulfa, Tetracycline, Levofloxacin Blood Thinner: None Pharmacy: [facility] Allergies bee pollen [BEE STINGS] Allergy (Severe, Verified 12/30/22 11:30) THROAT CLOSES walnut Allergy (Severe, Verified 12/30/22 11:30) THROAT SWELLING Sulfa (Sulfonamide Antibiotics) [SULFA(SULFONAMIDE ANTIBIOTICS)] Allergy (Intermediate, Verified 12/30/22 11:30) HIVES Tetracyclines [Tetracycline Analogues] Allergy (Intermediate, Verified 12/30/22 11:30) NAUSEA/VOMITING/RASH TO CYCLINES levofloxacin [From LEVAQUIN] Adverse Reaction (Intermediate, Verified 12/30/22 11:30) CONFUSION/AGITATION Medication List - Last Reconciled 12/30/22 by Og Mejía MD albuterol sulfate 90 mcg/actuation 2 puffs PO Q4H aripiprazole 10 mg PO QAM diazepam 5 mg PO BEDTIME escitalopram oxalate 10 mg PO BEDTIME fluticasone furoate-vilanterol 100-25 mcg/dose (Breo Ellipta) 1 ea PO DAILY montelukast 10 mg PO DAILY naproxen 500 mg PO BID PRN 7 days rosuvastatin 10 mg PO DAILY tamsulosin 0.4 mg PO BEDTIME 14 days tamsulosin 0.4 mg PO BEDTIME 14 days tramadol 50 mg PO Q6H PRN tramadol 50 mg PO Q6H PRN valsartan 160 mg PO DAILY HPI HPI Comments History of Present Illness Details Fouzia is very pleasant female. She is a patient of Dr. Ackerman She is seen for the following urologic conditions. - nephrolithiasis Twinkle artifact left side on ultrasound Minimal issues Encourage fluids and B6 6 month follow-up imaging Nephrolithiasis with high urinary sodium Prior ESWL 03/22 - multiple Minimal symptoms on left side currently Imaging - 11/19 renal ultrasound to 3 mm stones on left side mid and lower pole - 04/21 renal ultrasound fragments on left side pleated 24 hour urine - 10/21 renal ultrasound left 2 mm stone - 12/22 renal ultrasound twinkle artifact left side 24 hour urine 04/21 good volume over 2 L, good citrate at 500, low oxalate below 20, high calcium and high sodium - 08/21 24 hour urine with good volume, good citrate, low oxalate and medium calcium Intervention - 11/21 ESWL left Continue vitamin B6 and review in 6 months [facility] Medical History Asthma Bipolar 1 disorder Borderline high blood pressure High cholesterol Renal stones Surgical History History of Hx of appendectomy Hx of lithotripsy Hx of reduction mammoplasty Social History Patient Tobacco Use Status: Never used Tobacco Review of Systems Const Denies chills and Denies fever(s) Card Reports no additional complaints and Denies syncope Resp Denies cough GI Denies abdominal pain and Denies heartburn Reports as per HPI and Denies change in libido Neuro Denies syncope Psych Denies change in libido Endo Denies change in libido Physical Exam Const General: cooperative, healthy appearing, comfortable and no acute distress Orientation/consciousness: patient oriented x3 HEENT Face and sinus: Yes normal facial exam Mouth: moist mucous membranes Neck Neck: Yes normal visual inspection, Yes full ROM and Yes trachea midline Chest Chest palpation & inspection: normal inspection of the chest Resp Effort & Inspection: normal respiratory effort, able to speak in complete sentences and no respiratory distress GI Inspection: Yes normal to inspection Back/Spine/Pelvis Cervical Spine: normal cervical lordosis Thoracic/Lumbar Spine: thoracic and lumbar spine normal to inspection Skin General skin exam: no rashes or lesions noted Neuro General: patient oriented x3, gait normal, tone normal and moves all extremities Extrem General: Yes normal to inspection and Yes capillary refill normal Assessment & Plan Assessment & Plan (1) Renal stones: Code(s): N20.0 - Calculus of kidney Plan Six month follow-up imaging Orders: Orders US renal BI 6 Months N20.0 - Calculus of kidney Patient Instructions: Imaging studies, laboratory and physical exam results were discussed and reviewed in detail. No major barriers to patient understanding were identified. An opportunity to ask questions regarding the treatment plan was provided. All questions were answered. The patient expressed understanding and agreement with the above treatment plan. The patient is aware they should contact our office by phone for worsening of their current condition or the appearance of new urologic symptoms. Compliance is encouraged with any medications and followup testing that is ordered. It is a privilege to participate in the urologic care of your patient. If you have any questions or concerns regarding treatment for the above conditions, or other urologic issues, please do not hesitate to contact me. The office telephone contact is [phone]. This note is constructed using voice recognition software. While every effort has been made to ensure accuracy medical operations supervisor errors may have been included. Yours sincerely, Dr Og Mejía MD, [facility] - Urology Providers of Expert, Compassionate Care for the Genitourinary System Coding Level of Care Code Est Pt Level 3 (66621) Diagnoses Renal stones N20.0
== END 2022-12-30 11:55 | disposition home or self-care (01) ==
PROVIDERS: PCP Internal Medicine; Visit Provider Urology
DX: N20.0 Calculus of kidney (principal)
CPT/HCPCS: 99024

== ENCOUNTER → 2022-12-30 11:06 | Outpatient (BNVA) | payer MEDICARE, MEDICAID, SELFPAY | PROVIDERS: PCP Internal Medicine; Visit Provider Urology ==

== ENCOUNTER 2023-05-10 10:38 | Outpatient (REF) | payer MEDICARE, MEDICAID, SELFPAY ==
[2023-05-10 12:57] LABS: MANUAL DIFF FLAG NO
[2023-05-10 13:09] LABS: Basophils Absolute Auto 0.1 X10*3/uL (0.0-0.2); Basophils Percent Auto 1.2 % (0-2); Eosinophils Absolute Auto 0.2 X10*3/uL (0.0-0.4); Eosinophils Percent Auto 3.8 % (0-4); Hematocrit 42.9 % (37.0-47.0); Hemoglobin 13.8 g/dl (12.0-16.0); Imm Gran Abs Auto 0.02 X10*3/uL (0.00-0.03); Imm Gran Pct Auto 0.3 % (0.0-0.4); Lymphocytes Absolute Auto 1.2 X10*3/uL (1.2-4.9); Mean Corpuscular HGB Conc 32.2 g/dl (31.0-35.0); Mean Corpuscular Hemoglobin 31.1 pg (27.0-33.0); Mean Corpuscular Volume 96.6 fL (80.0-98.0); Mean Platelet Volume 10.4 fL (9.4-12.3); Monocytes Absolute Auto 0.6 X10*3/uL (0.1-1.2); Neutrophils Absolute Auto 3.7 x10*3/uL (2.0-8.3); Neutrophils Percent Auto 63.7 % (45-73); Platelet Count 266 X10*3/uL (160-400); Red Blood Count 4.44 X10*6/uL (4.20-5.50); Red Cell Distribution Width 12.6 % (11.0-16.0); White Blood Count 5.8 X10*3/uL (4.8-10.8)
[2023-05-10 13:36] LABS: Alanine Aminotransferase 33 U/L (0-31); Albumin Level 4.2 g/dL (3.5-5.0); Alkaline Phosphatase 67 U/L (39-117); Anion Gap 12 (12-20); Aspartate Amino Transferase 29 U/L (5-31); Bilirubin Total 0.4 mg/dL (0.0-1.0); Blood Urea Nitrogen 19 mg/dL (9-16); Calcium 9.8 mg/dL (8.4-10.2); Carbon Dioxide 27 mmol/L (22-29); Chloride 106 mmol/L (96-108); Cholesterol 201 mg/dL (<200); Estimated Glomerular Filt Rate 59; Glucose Random 106 mg/dL (60-115); HDL Cholesterol 58 mg/dL (>40); LDL Cholesterol Calculated 129 mg/dL (<100); Potassium 4.1 mmol/L (3.3-5.1); Sodium 141 mmol/L (135-145); Total Protein 6.9 g/dL (6.5-8.0); Triglycerides 71 mg/dL (<150)
[2023-05-10 13:54] LABS: Vitamin D 25-OH Total 63.4 ng/mL (>30)
== END 2023-05-10 10:39 | disposition home or self-care (01) ==
LOC: HO.MANLDS 10:38
PROVIDERS: Visit Provider Internal Medicine
DX: I10 Essential (primary) hypertension (principal); E55.9 Vitamin D deficiency, unspecified
CPT/HCPCS: 36415; 80053; 80061; 82306; 85025

== ENCOUNTER 2023-06-21 09:47 | Outpatient (REF) | payer MEDICARE, MEDICAID, SELFPAY ==
--- NOTE | ~2023-06-21 | US_ITS ---
EXAMINATION: US RETROPERITONEAL LIMITED (RENAL ONLY) CLINICAL INFORMATION: Calculus of kidney. COMPARISON: Renal ultrasound 12/22/2022 and 09/20/2022. X-ray abdomen KUB 11/17/2022. CT abdomen and pelvis 10/30/2018. TECHNIQUE: Real-time imaging of the kidneys. Substantially limited visualization due to bowel gas and body habitus. FINDINGS: RIGHT KIDNEY: 10.6 x 4.4 x 5.8 cm (SAG x AP x TRV). No hydronephrosis. No renal calculi. Renal cortical thickness is normal. Limited visualization. LEFT KIDNEY: 11.4 x 5.2 x 4.4 cm (SAG x AP x TRV). Mild fullness left renal pelvis. No renal calculi. Renal cortical thickness is normal. Limited visualization. US/US renal BI IMPRESSION: Mild fullness left renal pelvis. No renal calculi.
== END 2023-06-21 09:48 | disposition home or self-care (01) ==
LOC: HO.US 09:47
PROVIDERS: PCP Internal Medicine; Visit Provider Urology
DX: N20.0 Calculus of kidney (principal)
CPT/HCPCS: 76775

== ENCOUNTER 2023-07-05 08:41 | Outpatient (AMB) | payer MEDICARE, MEDICAID, SELFPAY ==
--- NOTE | 2023-07-05 08:45 | A.OFFVIS_ITS ---
Intake Intake Visit Reasons: 6m/US(set)vm to confirm Intake Note: Patient is Present for Telephone Follow Up Ultrasound Urology Med: Tamsulosin Antibiotic Allergy: Sulfa Antibiotics, Tetracyclines, Levofloxacin Blood Thinner: None Confirmed Pharmacy: [facility] Required: No Accompanied by: Self / Same As Patient Allergies bee pollen [BEE STINGS] Allergy (Severe, Verified 07/05/23 08:46) THROAT CLOSES walnut Allergy (Severe, Verified 07/05/23 08:46) THROAT SWELLING Sulfa (Sulfonamide Antibiotics) [SULFA(SULFONAMIDE ANTIBIOTICS)] Allergy (Intermediate, Verified 07/05/23 08:46) HIVES Tetracyclines [Tetracycline Analogues] Allergy (Intermediate, Verified 07/05/23 08:46) NAUSEA/VOMITING/RASH TO CYCLINES levofloxacin [From LEVAQUIN] Adverse Reaction (Intermediate, Verified 07/05/23 08:46) CONFUSION/AGITATION Medication List - Last Reconciled 07/05/23 by Og Mejía MD albuterol sulfate 90 mcg/actuation 2 puffs PO Q4H aripiprazole 10 mg PO QAM diazepam 5 mg PO BEDTIME escitalopram oxalate 10 mg PO BEDTIME fluticasone furoate-vilanterol 100-25 mcg/dose (Breo Ellipta) 1 ea PO DAILY montelukast 10 mg PO DAILY naproxen 500 mg PO BID PRN 7 days rosuvastatin 10 mg PO DAILY sertraline 25 mg PO DAILY valsartan 160 mg PO DAILY HPI HPI Comments History of Present Illness Details Fouzia is very pleasant female. She is a patient of Dr. Ackerman She is seen for the following urologic conditions. - nephrolithiasis Telemedicine Evaluation 15 min Consultation Doximity Deborah Video attempted No stones seen Increased surveillance interval to 12 month Continue vitamin B6 and interval ultrasound Nephrolithiasis with high urinary sodium Prior ESWL 03/22 - multiple Minimal symptoms on left side currently Imaging - 11/19 renal ultrasound to 3 mm stones o n left side mid and lower pole - 04/21 renal ultrasound fragments on le ft side pleated 24 hour urine - 10/21 renal ultrasound left 2 mm stone - 12/22 renal ultrasound twinkle artifact left side - 07/23 renal ultrasound minimal stones 24 hour urine 04/21 good volume over 2 L , good citrate at 500, low oxalate below 20, high calcium and high sodium - 08/21 24 hour urine with good volume, g ood citrate, low oxalate and medium calcium Intervention - 11/21 ESWL left Continue vitamin B6 and review in 6 months [facility] Medical History Asthma Bipolar 1 disorder Borderline high blood pressure High cholesterol Renal stones Surgical History History of Hx of appendectomy Hx of lithotripsy Hx of reduction mammoplasty Social History Patient Tobacco Use Status: Never used Tobacco Review of Systems Const All systems reviewed & are unremarkable except as noted in HPI and below Reports no additional complaints Resp Reports no additional complaints GI Reports no additional complaints Reports as per HPI Musc Reports no additional complaints Physical Exam Telemedicine evaluation Appropriate responses Regular breathing rate and rhythm HEENT Head: Yes normal to inspection Ears: hearing grossly normal bilaterally Eyes General: appearance normal, both eyes and all related structures Neck Neck: Yes normal visual inspection Chest Chest palpation & inspection: normal inspection of the chest Resp Effort & Inspection: normal respiratory effort and able to speak in complete sentences Assessment & Plan Assessment & Plan (1) Renal stones: Code(s): N20.0 - Calculus of kidney Plan Twelve month follow-up renal ultrasound Continue vitamin B6 Orders: Orders US renal BI 12 Months N20.0 - Calculus of kidney Medications: New pyridoxine (vitamin B6) 50 mg PO DAILY 90 days 90 tabs 3RF N13.2 - Hydronephrosis with renal and ureteral calculous obstruction, N20.0 - Calculus of kidney Patient Instructions: Imaging studies, laboratory and physical exam results were discussed and reviewed in detail. No major barriers to patient understanding were identified. An opportunity to ask questions regarding the treatment plan was provided. All questions were answered. The patient expressed understanding and agreement with the above treatment plan. The patient is aware they should contact our office by phone for worsening of their current condition or the appearance of new urologic symptoms. Compliance is encouraged with any medications and followup testing that is ordered. It is a privilege to participate in the urologic care of your patient. If you have any questions or concerns regarding treatment for the above conditions, or other urologic issues, please do not hesitate to contact me. The office telephone contact is [phone]. This note is constructed using voice recognition software. While every effort has been made to ensure accuracy physician pediatrician errors may have been included. Yours sincerely, Dr Og Mejía MD, [facility] - Urology Providers of Expert, Compassionate Care for the Genitourinary System Telehealth Telehealth Location of provider rendering services: practice address Location of patient: address on file Patient Identification confirmed using: Name, : Yes Telehealth method: video Patient verbally consented to treatment: Yes Patient verbally consented to billing insurance company: Yes Patient informed of any privacy concerns related to visit: Yes Coding Level of Care Code Tele Est Pt Level 3 (50406) Diagnoses Renal stones N20.0
== END 2023-07-05 09:10 | disposition home or self-care (01) ==
LOC: HO.HUSH 08:42
PROVIDERS: PCP Internal Medicine; Visit Provider Urology
DX: N20.0 Calculus of kidney (principal)
CPT/HCPCS: 99213

== ENCOUNTER → 2023-07-05 08:41 | Outpatient (BNVA) | payer MEDICARE, MEDICAID, SELFPAY | PROVIDERS: PCP Internal Medicine; Visit Provider Urology ==

== ENCOUNTER 2024-06-28 12:34 | Outpatient (REF) | payer MEDICARE, MEDICAID, SELFPAY ==
--- NOTE | ~2024-06-28 | US_ITS ---
EXAMINATION: US KIDNEY BILATERAL HISTORY: N20.0 - Calculus of kidney TECHNIQUE: Real-time grayscale ultrasound imaging of the kidneys was performed and images were reviewed. COMPARISON: Comparison is made with the prior examination dated 06/21/2023. FINDINGS: Right kidney: The right kidney measures 12.3 x 4.5 x 6.1 cm. Renal parenchymal echotexture and thickness are normal. There are no masses. There is a nonobstructing calculus at the lower pole measuring 5 x 3 x 4 mm. There is no hydronephrosis. Left Kidney: The left kidney measures 12.7 x 5.1 x 3.8 cm. Renal parenchymal echotexture and thickness are normal. There are no masses. There is no hydronephrosis or renal calculi. US/US renal BI IMPRESSION: 5 x 3 x 4 mm nonobstructing calculus at the lower pole of the right kidney. Otherwise unremarkable renal ultrasound. Electronically signed by: Jeremy Nielsen MD 06/28/2024 01:53 PM ANGELA
--- OUTSIDE RECORDS SUMMARY | 2024-06-28 14:58 | XMS_ITS | Data Portability ---
Author Organization [place] Ramiro Gil Wijeremías [facility], [facility] Address [address] [place] [address] Care Team Providers Care Applications Architect Name Role Phone SEDRICK GODOY Primary Care Provider [phone] SEDRICK GODOY Referring Provider Assessment Encounter Date Assessment Date Assessment LastModified by Organization Details LastModified Time 09/05/2023 09/05/2023 Assessment: Patient able to increase repetitions on bridges and S/L hip abduction without increases in pain, indicating improvements in strength and endurance. Good abdominal contraction with pelvic tilts, with min TC to improve neuromuscular connection. Plan: Improve ITB flexibility and hip strength. Frequency: 2x/week for 6 weeks [email or web address] Not available 09/05/2023 14:42:58 09/08/2023 09/08/2023 Assessment: Pt. continues to experience relief with a piriformis release. Able to progress Pt. to standing hip exercises, needing moderate VC to sequence hip clocks correctly, but able to demonstrate with an increase in (B) LEs fatiguing at end of session. Plan: Improve ITB flexibility and hip strength. Frequency: 2x/week for 6 weeks [email or web address] Not available 09/08/2023 12:50:59 09/12/2023 09/12/2023 Assessment: Patient had significant pain relief after STM to the ischial tuberosity was performed. Instructed patient how to recreate that technique at home with a ball. Also instructed patient to perform eccentric hamstring curls at home. Plan: Improve HS flexibility, STM to ischial tuberosity, eccentric strengthening to the HS. [email or web address] Not available 09/12/2023 14:22:25 09/13/2023 09/13/2023 X-rays 3 views ordered, obtained, reviewed: AP, false profile, and modified Rubio view Left hip: Hip joint space preserved. No osteophyte formation. No calcifications or irregularity over the greater trochanter. Impression: 1. Left hip greater trochanteric pain syndrome 2. Posterior hip pain-findings consistent with ischial gluteal bursitis, possible hamstring tendinitis Plan: Reviewed the diagnosis and treatment options with the patient today. She reports primarily posterior hip pain not classic with trochanteric pain syndrome however she does report previous corticosteroid injection will was helpful. She has been attending physical therapy. Given improvement with previous injection patient requested repeat corticosteroid injection which was administered under ultrasound. She will continue with physical therapy and [id number] medication as needed. If ongoing symptoms refractory to conservative management, would recommend MRI left hip to evaluate for any abductor tendon tear and/or hamstring tendinitis/partia l tearing. Patient can call to request MRI if symptoms dictate. All questions answered today. [email or web address] Not available 09/13/2023 13:02:24 Plan of Treatment Reminders Order Date Submit Date Provider Last Modified By Organization Details Last Modified Time Details Appointments None record ed. Lab None record ed. Referral None record ed. Procedures None record ed. Surgeries None record ed. Imaging XR, hip, unilat eral, 2 or 3 view - new eval left hip 3V 024 09/13/19 24 [email or web address] Not available 4 09:38:38 Medication Orders None record ed. Patient TargetsNo targets recorded. Patient InstructionsNo instructions recorded. Reason for Referral None Reported. Results Created Date Observation Date Name Description Value Unit Range Abnormal Flag Note LastModifiedBy Organization Detail LastModifiedTime 12/31/19 24 03/04/2022 imagi ng/di agnos tic resul t No observ ation record ed. [email or web address] Not Available 12/02 01:02:17 Result Notes None recorded. Problems Name Problem SNOMED Code Status Onset Date Resolution Date Notes Provider Name and Address Organization Details Recorded Time Osteoarthri tis of left knee joint 8964127056181 09 Active 2024 Dinah Merino PA-C [address], [facility] [place], [place], [address], [facility] [place] [facility] 5 12:27:35 Synovial popliteal cyst of left knee Active 2024 Dinah Merino PA-C [address], [place], [address], [facility] 12:27:51 Problem Notes None recorded. Procedures Surgical History Date Name Laterality Status Provider Name and Address Organization Details Recorded Time 09/13/19 Hip Kenalog Injection, L/R w/US completed Rowdy Palomares MD [address], [place], [address], [facility] 09/13/2023 13:02:13 09/12/19 33628 Therapeutic Exercise (1:1) completed Krish Ambrocio DPT [address], [place], [address], [facility] 09/12/2023 14:22:30 09/12/19 31936: Manual therapy completed Krish Ambrocio DPT [address], [place], [address], [facility] 09/12/2023 14:22:32 09/08/19 89191 Therapeutic Exercise (1:1) completed Luisito De Souza PTA [address], [place], [address], [facility] 09/08/2023 12:51:07 09/05/19 86353 Therapeutic Exercise (1:1) completed Krish Ambrocio DPT [address], [place], [address], [facility] 09/02/2023 13:44:28 09/02/19 01827 Therapeutic Exercise (1:1) completed Luisito De Souza PTA [address], [place], [address], [facility] 09/02/2023 12:22:56 08/26/19 68274 Therapeutic Exercise (1:1) completed Luisito De Souza PTA [address], [place], [address], [facility] 08/26/2023 12:22:16 08/26/19 60494: Manual therapy completed Luisito De Souza, CORRECTIONAL GUARD [address], [place], [address], [facility] 08/26/2023 12:22:20 08/24/19 42847 Therapeutic Exercise (1:1) completed Krish Ambrocio DPT [address], [place], [address], [facility] 08/24/2023 13:13:31 08/24/19 17624: Low complexity PT Eval completed Krish Ambrocio DPT [address], [place], [address], [facility] 08/24/2023 13:13:27 08/24/19 G8417 BMI Above Upper Parameters, F/U Documented completed Krish Ambrocio DPT [address], [place], [address], [facility] 08/24/2023 13:13:50 08/24/19 G8427 Current Medication Documented completed Krish Ambrocio DPT [address], [place], [address], [facility] 08/24/2023 13:13:41 Appendectomy completed JOSE RAUL DELGADO [facility] 09/13/2023 09:28:55 lithotripsy completed JOSE RAUL THERRIANGELA [facility] 09/13/2023 09:29:01 delivery completed JOSE RAUL PINEDARIANGELA [facility] 09/13/2023 09:29:06 Ankle/Foot Surgery completed JOSE RAUL PINEDARIANGELA [facility] 09/13/2023 09:29:11 Imaging Results Imaging Date Name Status LastModified by Organiz ation Details LastModified Time 03/04/2022 imaging/diag nostic result completed [email or web address] Information not available 12/31/2023 01:02:17 Procedure Notes None recorded. Medical Equipment None Reported. Allergies Allergen ID Allergen Name Allergen Category Reaction Reaction Severity Criticality Documentation Date Start Date Code Code System Note Provider Name and Address Organization Details Recorded Time 823143 Substance with sulfonami de structure and antibacte rial mechanism of action (substanc e) medicatio n Not available Not available Not available 07/04/20232017 43411 8003 SNOMED Aller gyRea ction : 'Skin React ion'; Not Available [facility] 4 15:27:10 360003 Levaquin medicatio n Not available Not available Not available 07/04/20232017 36452 2 RxNorm Aller gyRea ction : 'Skin React ion'; Not Available [facility] 4 15:27:10 605627 walnut allergeni c extract food Not available Not available Not available 07/04/20232017 45974 0 RxNorm Not Available [facility] 4 15:27:10 Medications Name Sig Start Date Stop Date Status Note LastModified by Organization Details LastModified Time prednisone 10 mg tablet TAKE 4 TABLETS BY MOUTH DAILY X3DAYS TAKE 3 TABLETS DAILY X3DAYS TAKE 2 TABLETS DAILY X3DAYS TAKE 1 TABLET DAILY X3DAYS 06/27 completed Not Available Not Available Not Available clindamycin HCl 300 mg capsule 06/27 completed Not Available Not Available Not Available azithromyci n 250 mg tablet 06/27 completed Not Available Not Available Not Available ibuprofen 800 mg tablet 06/27 completed Not Available Not Available Not Available meloxicam 15 mg tablet 06/27 completed Not Available Not Available Not Available prednisone 20 mg tablet 06/27 completed Not Available Not Available Not Available clobetasol 0.05 % topical cream APPLY THIN LAYER TOPICALLY TO THE AFFECTED AREA TWICE DAILY 06/27 completed Not Available Not Available Not Available Wellbutrin SR 100 mg tablet, 12 hr sustained-r elease Take 1 tablet twice a day by oral route. active Not Available Not Available No t Available amoxicillin 500 mg tablet TAKE 1 TABLET BY MOUTH EVERY 6 HOURS UNTIL GONE 06/27 completed Not Available Not Available Not Available pramipexole 0.5 mg tablet TAKE 1 TABLET BY MOUTH THREE TIMES DAILY 06/27 completed Not Available Not Available Not Available oxycodone-a cetaminophe n 5 mg-325 mg tablet TAKE 1 TABLET BY MOUTH EVERY 6 HOURS NEEDED FOR PAIN 06/27 completed Not Available Not Available Not Available hydrocortis one 2.5 % topical cream with perineal applicator APPLY THIN LAYER TOPICALLY TO THE AFFECTED AREA 2 TO 4 TIMES DAILY 06/27 completed Not Available Not Available Not Available terbinafine HCl 250 mg tablet TAKE 1 TABLET BY MOUTH EVERY DAY active Not Available Not Available No t Available tamsulosin 0.4 mg capsule TAKE 1 CAPSULE BY MOUTH AT BEDTIME FOR 14 DAYS 06/27 completed Not Available Not Available Not Available gemfibrozil 600 mg tablet TAKE 1 TABLET BY MOUTH TWICE DAILY active Not Available Not Available No t Available betamethaso ne dipropionat e 0.05 % topical cream APPLY THIN LAYER TOPICALLY TO THE AFFECTED AREA EVERY DAY 06/27 completed Not Available Not Available Not Available pyridoxine (vitamin B6) 50 mg tablet TAKE 1 TABLET BY MOUTH EVERY DAY 06/27 completed Not Available Not Available Not Available sertraline 25 mg tablet TAKE 1 TABLET BY MOUTH EVERY MORNING 06/27 completed Not Available Not Available Not Available montelukast 10 mg tablet TAKE 1 TABLET BY MOUTH EVERY DAY active Not Available Not Available No t Available ibuprofen 600 mg tablet TAKE 1 TABLET BY MOUTH FOUR TIMES DAILY WITH MEALS NEEDED 06/27 completed Not Available Not Available Not Available methylpredn isolone 4 mg tablets in a dose pack FOLLOW PACKAGE DIRECTION S 06/27 completed Not Available Not Available Not Available albuterol sulfate HFA 90 mcg/actuati on aerosol inhaler INHALE 2 PUFFS BY MOUTH EVERY 4 HOURS 06/27 completed Not Available Not Available Not Available naproxen 500 mg tablet TAKE 1 TABLET BY MOUTH TWICE DAILY FOR 7 DAYS NEEDED FOR PAIN 06/27 completed Not Available Not Available Not Available diazepam 5 mg tablet TAKE 1 TABLET BY MOUTH AT BEDTIME 06/27 completed Not Available Not Available Not Available valsartan 160 mg tablet TAKE 1 TABLET BY MOUTH EVERY DAY active Not Available Not Available No t Available escitalopra m 10 mg tablet TAKE 1 TABLET BY MOUTH AT BEDTIME 06/27 completed Not Available Not Available Not Available Vitamin B6 100 mg tablet Take by oral route. active Not Available Not Available No t Available aripiprazol e 15 mg tablet TAKE 1 TABLET BY MOUTH EVERY NIGHT active Not Available Not Available No t Available black cohosh 200 mg capsule Take by oral route. active Not Available Not Available No t Available bupropion HCl XL 300 mg 24 hr tablet, extended release TAKE 1 TABLET BY MOUTH EVERY MORNING 06/27 completed Not Available Not Available Not Available bupropion HCl XL 150 mg 24 hr tablet, extended release TAKE 1 TABLET BY MOUTH EVERY MORNING WITH 300 MG TABLET FOR TOTAL DOSE OF 450 MG 06/27 completed Not Available Not Available Not Available chlorhexidi ne gluconate 0.12 % mouthwash 06/27 completed Not Available Not Available Not Available magnesium active Not Available Not Renée ilable Not Available oxcarbazepi ne OXcarbaze pine 600MG Tablet 06/27 completed Statu s: 'Curr ent'; Not Available Not Available Not Available aripiprazol e ARIPipraz ole 10MG Tablet 06/21 completed Statu s: 'Disc ontin ued'; Not Available Not Available Not Available oxycodone HCl-oxycodo ne-ASA 1 Q 4-6HRS PRN PAINDO NOT DRIVE WHILE ON THIS MEDICATIO N 06/21 completed Statu s: 'Disc ontin ued'; Not Available Not Available Not Available Breo Ellipta 100 mcg-25 mcg/dose powder for inhalation INHALE 1 PUFF BY MOUTH EVERY DAY active Not Available Not Available No t Available vitamin D3 1,250 mcg (50,000 unit)-vitam in K2 200 mcg capsule Take by oral route. active Not Available Not Available No t Available Vitals Date Recorded Body height Body mass index (BMI) Body weight Provider Name and Address Organization Details Last Updated DateTime 09/13/2023 162.56 cm 39 kg/m2 201112.47 g JOSE RAUL DELGADO [facility] 09/13/2023 09:27:38 Date Recorded Body height Body mass index (BMI) Body weight Provider Name and Address Organization Details Last Updated DateTime 06/27/2024 162.56 cm 39 kg/m2 255770.47 g TONE L'HEUREUX [facility] 06/27/2024 10:42:12 Social History Question Answer Notes LastModified by Organizat ion Details LastModified Time Tobacco Smoking Status Former Smoker JOSE RAUL tabor [place] [facility] [place] [facility] 09/13/2023 09:28:36 What Is Your Level Of Alcohol Consumption? Occasional Information not available 09/13/2023 How Many Times Per Week Do You Consume Alcohol? Less Than 1 Time Per Week Information not available 09/13/2023 Which Illicit Or Recreational Drugs Have You Used? Cannabis Information not available 09/13/2023 When Did You Quit Smoking? 16+yearssincel astcigarette Information not available 09/13/2023 Have You Ever Been Counseled For Unhealthy Alcohol Use? No Information not available 09/13/2023 How Much Tobacco Do You Smoke? No Information not available 09/13/2023 Do You Use Any Illicit Or Recreational Drugs? Yes Information not available 09/13/2023 How Many Years Have You Smoked Tobacco? 10 Information not available 09/13/2023 Do You Or Have You Ever Used Any Other Forms Of Tobacco Or Nicotine? No Information not available 09/13/2023 Sex: Unknown Functional Status None recorded. Mental Status None recorded. Family History Nothing Reported. Medical History Condition Response Allergies/Hayfever N Coronary Artery Disease N Anxiety/Depression N Breathing or lung disorders N Emphysema N Nerve Disorders N Thyroid Problems N COPD N Pacemaker N Anemia N Kidney/Bladder Problems N Vascular Disease N Heart Trouble N Heart Attack (PR) N Gastrointestinal Disease N Cholesterol N Diabetes N Autoimmune disease N Inflammatory Joint disease N Bleeding Disorder N Orthotics N Arthritis Y Seizures/Epilepsy N Blood Clot N AIDS/HIV N Congestive Heart Failure (CHF) N Acid Reflux (GERD) N Cancer N Stroke N Asthma Y Circulation Problems N Peripheral Vascular Disease N Sleep Apnea N Hepatitis N Heart Disease N Rheumatoid Arthritis N Arrhythmia N Pulmonary Embolism N Headaches N Fibromyalgia N Hypertension Y Osteoporosis N Gynecological HistoryNo gynecological history recorded. Obstetrics History GPAL:G 0 P 0 0 0 0 Past Encounters Encounter ID Performer Location Encounter Start Date Encounter Closed Date Diagnosis/Indication Diagnosis SNOMED-CT Code Diagnosis ICD10 Code Diagnosis Note [id number] ELENA Ryanampjerem[facility] [address] [place] [address] 08/24/2023 11:59:09 08/24/2023 13:08:03 Trochanteric bursitis of left hip 9229806079 95519 M70.62 [id number] Krish Ambrocio DPT [facility] [address] [place] [address] 08/26/2023 11:09:23 08/26/2023 12:48:33 Trochanteric bursitis of left hip 9684980594 51525 M70.62 [id number] Krish Ambrocio DPT [facility] [address] [place] [address] 09/02/2023 11:19:24 09/02/2023 12:58:27 Trochanteric bursitis of left hip [id number] 57107 M70.62 [id number] Krish Ambrocio DPT [facility] [facility] [address] [place] [address] 09/05/2023 12:28:36 09/05/2023 14:47:56 Trochanteric bursitis of left hip 3563580666 21594 M70.62 [id number] Krish Ambrocio DPT [facility] [facility] [address] [place] [address] 09/08/2023 11:15:02 09/08/2023 15:39:24 Trochanteric bursitis of left hip [id number] 25015 M70.62 [id number] Krish Ambrocio DPT [facility] [facility] [address] [place] [address] 09/12/2023 11:50:55 09/12/2023 14:51:30 Trochanteric bursitis of left hip [id number] 28759 M70.62 [id number] Rowdy Palomares MD [facility] on [facility] [address] [place] [address] 09/13/2023 09:15:07 10/05/2023 07:38:36 Pain of left hip joint 8014271871 73267 M25.552 Trochanter ic bursitis of left hip 7762372767 57072 M70.62 [id number] ELENA Garcia [address] [place] [address] 06/27/2024 09:56:21 06/27/2024 12:28:37 Osteoarthritis of left knee joint 8985061272 82604 M17.12 Synovial p opliteal cyst of left knee 2815888339 M71.22 Health Concerns Section Related Observation LastModified by Organization Detai ls LastModified Time None Recorded Concern Status LastModified by Organization Details LastModified Time None Recorded Advance Directives Directive None Recorded Payers Encounter Date Sequence Insurance Name Policy Number Policy Escalante Covered Member ID Escalante Member ID Guarantor Name 09/05/2023 2 [place] [employer] Fouziaemma Brar [id number] Fouzia Brar 09/05/2023 1 [place] Fouzia Brar [id number] Fouzia Brar 09/08/2023 2 [place] Fouziaemma Brar [id number] Fouzia Giancarlo Brar 09/08/2023 1 [place] Fouzia Brar [id number] Fouzia Giancarlo Brar 09/12/2023 2 [place] Fouzia Brar [id number] Fouzia Giancarlo Foster 09/12/2023 1 [place] Fouzia Brar [id number] Fouzia Giancarlo Brar 09/13/2023 2 [place] Fouzia Brar [id number] Fouzia Giancarlo Brar 09/13/2023 1 [place] Fouzia Brar [id number] Fouzia Giancarlo Foster 06/27/2024 2 [place] Fouzia Brar [id number] Fouzia Giancarlo Brar 06/27/2024 1 [place] Fouzia Brar [id number] Fouzia Giancarlo Brar Notes Date Note Type Note Provider Name and Address Organization Details Recorded Time 09/05/2023 text/html Patient states h er symptoms have remained unchanged. The piriformis release last visit gave her some symptom relief for the day. Krish Cristóbal, DPT [address], [place], [address], [facility] 09/05/2023 14:43:07 09/08/2023 text/html Pt. continues to report that her symptoms remain unchanged. She experiences relief after the piriformis release for 24 hours, but then her symptoms come back feeling discourgaged about her progress. Luisito De Souza, CORRECTIONAL GUARD [address], [place], [address], [facility] 09/08/2023 12:51:31 09/12/2023 text/html Patient reports that she has been feeling good after PT, but it does not last. States that this past weekend was tough due to constant pain and intermittent cramping in the posterior lateral aspect of the hip Krish Ambrocio, DPT [address], [place], [address], [facility] 09/12/2023 14:22:52 09/13/2023 text/html Chief complaint: Left hip painHistory: Patient is a 57-year-old female here today with chief complaint of left hip pain. She reports pain localizes to the posterior left gluteal region. Symptoms have been present since January 2023. She has been using anti-inflammatories. Patient reports pain worsens by the end of the day. She has been in physical therapy. She was last seen by RANDALL Clark. Corticosteroid injection was administered. Patient reports the injection did help.PMH/PSH/MEDS/ALL/ FMH/SOC HX/ROS are reviewed in detail per my medical intake sheet. Rowdy Palomares MD [address], [place], [address], [facility] 09/13/2023 13:02:46 06/27/2024 text/html I am seeing the patient today under the supervision of {{Handy Burris* Kaz Matias [facility]}} who was available but who did not see the patient. HPI: 58-year-old female patient presents today for left knee pain that began back in 2018 when she fell on some stairs. Her most recent flareup of pain began about 6 weeks ago, she reports she was barely able to ambulate on her left lower extremity and then pain dissipated. Pain was localized about the medial joint line. She has no pain today. Denies mechanical catching or locking symptoms. Denies previous knee surgery or treatment. She presents today with an MRI that was ordered by her primary care provider. Past family, social history and review of systems has been reviewed, updated and is located in the patient? s chart. X-RAYS: Previous 4v X-rays of the {{Right Left* Bilatera l}} knee from May 2024 [place] uploaded into PACS and independently reviewed today at [facility] demonstrates mild medial compartment space narrowing with early osteophyte formation, mild patellofemoral joint degenerative changes. MRI [facility] 05-24-24 of the left kneeindependently reviewed today demonstrates: Moderate joint effusion with moderate sized Wilson's cyst. Moderate medial patellofemoral degenerative changes. ACL and PCL appear intact. Tear of the posterior horn medial meniscus root with medial meniscus extrusion. Full-thickness cartilage loss at the medial compartment with moderate bony edema. Lateral meniscus appears intact. No loose bodies. IMPRESSION: {{Right Left* Bilatera l}} knee medial and patellofemoral osteoarthritis with degenerative medial meniscus root tear and extrusion, wilson's cyst PLAN: Findings reviewed. Patient has no pain or discomfort at this time. Discussed likely conservative treatment will be recommended given her underlying osteoarthritis and degenerative appearance of the medial meniscus root tear with extrusion. Discussed in the future she may require total knee arthroplasty. Discussed if her pain returns, likely would recommend cortisone injection, topical and oral anti-inflammatories with surgical arthroscopy being last resort. Discussed [id number] Voltaren cream as needed if she feels the Wilson's cyst or her arthritis. Patient will follow-up as symptoms dictate. All of her concerns are addressed and she understands and agrees with the plan. Speech recognition manager city software was used to create portions of this document. An attempt at proofreading has been made to minimize errors. Please call for corrections. Dinah Merino PA-C [address] [place] [address] [address] [facility] [place], [place], [address], [facility] [place] [facility] 06/27/2024 12:28:36 OBGyn Episode No OBEpisode recorded.
--- OUTSIDE RECORDS SUMMARY | 2024-06-28 14:59 | XMS_ITS | Continuity of Care Document ---
Author Organization [facility], MAYRA José 1st Floor Address [address] [place] [address] Care Team Providers Care Manager Enterprise Content Management Name Role Phone VELDONNIE SEDRICK Primary Care Provider SEDRICK GODOY Referring Provider Assessment No assessment recorded. Plan of Treatment Reminders Order Date Submit Date Provider Last Modified By Organization Details Last Modified Time Details Appointments None record ed. Lab None record ed. Referral None record ed. Procedures None record ed. Surgeries None record ed. Imaging None record ed. Medication Orders None record ed. Patient TargetsNo targets recorded. Patient InstructionsNo instructions recorded. Reason for Referral None Reported. Problems Name Problem SNOMED Code Status Onset Date Resolution Date Notes Provider Name and Address Organization Details Recorded Time Osteoarthri tis of left knee joint [id number] 09 Active 2024 Dinah Merino PA-C [address], [place], [address], [facility] 5 12:27:35 Synovial popliteal cyst of left knee Active 2024 Dinah Merino PA-C [address], [place], [address], [facility] 12:27:51 Problem Notes None recorded. Procedures Surgical History Date Name Laterality Status Provider Name and Address Organization Details Recorded Time 09/13/19 24 Hip Kenalog Injection, L/R w/US completed Rowdy Palomares MD [address], [place], [address], [facility] 09/13/2023 13:02:13 09/12/19 85925 Therapeutic Exercise (1:1) completed Krish Ambrocio, DPT [address], [place], [address], [facility] 09/12/2023 14:22:30 09/12/19 00698: Manual therapy completed Krish Ambrocio DPT [address], [place], [address], [facility] 09/12/2023 14:22:32 09/08/19 36032 Therapeutic Exercise (1:1) completed Luisito De Souza PTA [address], [place], [address], [facility] 09/08/2023 12:51:07 09/05/19 47983 Therapeutic Exercise (1:1) completed KYLIE KwanT [address], [place], [address], [facility] 09/02/2023 13:44:28 09/02/19 17954 Therapeutic Exercise (1:1) completed Luisito De Souza PTA [address], [place], [address], [facility] 09/02/2023 12:22:56 08/26/19 01970 Therapeutic Exercise (1:1) completed Luisito De Souza PTA [address], [place], [address], [facility] 08/26/2023 12:22:16 08/26/19 24833: Manual therapy completed Luisito De Souza [employer] [address], [place], [address], [facility] 08/26/2023 12:22:20 08/24/19 36504 Therapeutic Exercise (1:1) completed Krish Ambrocio, DPT [address], [place], [address], [facility] 08/24/2023 13:13:31 08/24/19 15051: Low complexity PT Eval completed Krish Ambrocio, DPT [address], [place], [address], [facility] 08/24/2023 13:13:27 08/24/19 G8417 BMI Above Upper Parameters, F/U Documented completed Krishcorina Youngski, DPT [address], [place], [address], [facility] 08/24/2023 13:13:50 08/24/19 G8427 Current Medication Documented completed Krish Zielenski, DPT [address], [place], [address], [facility] 08/24/2023 13:13:41 Appendectomy completed [facility] 09/13/2023 09:28:55 lithotripsy completed [facility] 09/13/2023 09:29:01 delivery completed [facility] 09/13/2023 09:29:06 Ankle/Foot Surgery completed [facility] 09/13/2023 09:29:11 Imaging Results None recorded. Procedure Notes None recorded. Medical Equipment None Reported. Allergies Allergen ID Allergen Name Allergen Category Reaction Reaction Severity Criticality Documentation Date Start Date Code Code System Note Provider Name and Address Organization Details Recorded Time 148230 Substance with sulfonami de structure and antibacte rial mechanism of action (substanc e) medicatio n Not available Not available Not available 07/04/20232017 83543 8003 SNOMED Aller gyRea ction : 'Skin React ion'; Not Available [facility] 4 15:27:10 359768 Levaquin medicatio n Not available Not available Not available 07/04/20232017 59823 2 RxNorm Aller gyRea ction : 'Skin React ion'; Not Available [facility] 4 15:27:10 466331 walnut allergeni c extract food Not available Not available Not available 07/04/20232017 75037 0 RxNorm Not Available [facility] 15:27:10 Medications Name Sig Start Date Stop [...] Available oxcarbazepi ne OXcarbaze pine 600MG Tablet 06/27/ 2018 02/26 /2025 completed Statu s: 'Curr ent'; Not Available [...] Updated DateTime 06/27/2024 162.56 cm 39 kg/m2 248715.47 g KAYLIA L'HEUREUX [place] [facility] 06/27/2024 10:42:12 Social History Question Answer Notes LastModified by Organizat ion Details LastModified Time Tobacco Smoking Status Former Smoker JOSE RAUL tabor [place] [facility] 09/13/2023 09:28:36 What Is Your Level Of [...] Disease N Heart Trouble N Heart Attack ([place]) N Gastrointestinal Disease N Cholesterol N Diabetes N Autoimmune disease N Bleeding Disorder N Inflammatory Joint disease N Orthotics N Arthritis Y Seizures/Epilepsy N [...] SNOMED-CT Code Diagnosis ICD10 Code Diagnosis Note [id number] ELENA Garcia [address] [facility] [place] [address] 06/27/2024 09:56:21 06/27/2024 12:28:37 Osteoarthritis of left knee joint [id number] 94698 M17.12 Synovial p opliteal cyst of left knee [id number] M71.22 Health Concerns Section Related Observation LastModified by Organization Detai ls LastModified Time None Recorded Concern Status LastModified by Organization Details LastModified Time None Recorded Payers Encounter Date Sequence Insurance Name Policy Number Policy Escalante Covered Member ID Escalante Member ID Guarantor Name 06/27/2024 2 [place] Fouzia Brar [id number] Fouzia Brar 06/27/2024 1 [place] [employer] Fouzia Brar [id number] Fouzia Brar Notes Date Note Type Note Provider Name and Address Organization Details Recorded Time 06/27/2024 text/html I am seeing the patient today under the supervision of {{Handy Burris* Kaz Matias OBilly [employer]}} who was available but who did [...] Left* Bilatera l}} knee from May 2024 Hoodsimon Merino uploaded into PACS and independently reviewed today at [facility] demonstrates mild medial compartment space [...] with surgical arthroscopy being last resort. Discussed [id number] Voltaren cream as needed if she feels the Wilson's cyst or her arthritis. Patient will follow-up as symptoms dictate. All of her concerns are addressed and she understands and agrees with the plan. Speech recognition hims clerk software was used to create portions of this document. An attempt at proofreading has been made to minimize errors. Please call for corrections. Dinah Merino PA-C [address], [place], [address], [place] [facility] 06/27/2024 12:28:36 OBGyn Episode No OBEpisode recorded.
== END 2024-06-28 12:35 | disposition home or self-care (01) ==
LOC: HO.US 12:34
PROVIDERS: PCP Internal Medicine; Visit Provider Urology
DX: N20.0 Calculus of kidney (principal)
CPT/HCPCS: 76775

== ENCOUNTER → 2024-06-28 12:36 | Outpatient (BNV) | payer MEDICARE, MEDICAID, SELFPAY | PROVIDERS: PCP Internal Medicine; Visit Provider Radiology Diagnostic Radiology | DX: N20.0 Calculus of kidney (principal) | CPT/HCPCS: 76775 ==

== ENCOUNTER 2024-08-01 09:55 | Outpatient (AMB) | payer MEDICARE, MEDICAID, SELFPAY ==
--- NOTE | 2024-08-01 10:18 | A.OFFVIS_ITS ---
Intake Visit Reasons: 1YR US Intake Note: Patient is Present for 1Y Follow Up/US Urology Med: VITAMIN B6 Antibiotic Allergy: Sulfa Antibiotics, Tetracyclines, Levofloxacin Blood Thinner: None Traffic Safety Administrator Required: No Accompanied by: Self / Same As Patient Allergies bee pollen [BEE STINGS] Allergy (Severe, Verified 08/01/24 10:19) THROAT CLOSES walnut Allergy (Severe, Verified 08/01/24 10:19) THROAT SWELLING Sulfa (Sulfonamide Antibiotics) [SULFA(SULFONAMIDE ANTIBIOTICS)] Allergy (Intermediate, Verified 08/01/24 10:19) HIVES Tetracyclines [Tetracycline Analogues] Allergy (Intermediate, Verified 08/01/24 10:19) NAUSEA/VOMITING/RASH TO CYCLINES levofloxacin [From LEVAQUIN] Adverse Reaction (Intermediate, Verified 08/01/24 10:19) CONFUSION/AGITATION HPI Comments Details: Fouzia is very pleasant female. She is a patient of Dr. Ackerman She is seen for the following urologic conditions. - nephrolithiasis Twelve month surveillance Small stone seen No symptoms Very happy to continue with current approach Continue vitamin B6 and interval ultrasound Recommend lemon in water Nephrolithiasis with high urinary sodium Prior ESWL 03/22 - multiple Minimal symptoms on left side currently Imaging - 11/19 renal ultrasound to 3 mm stones on left side mid and lower pole - 04/21 renal ultrasound fragments on left side pleated 24 hour urine - 10/21 renal ultrasound left 2 mm stone - 12/22 renal ultrasound twinkle artifact left side - 07/23 renal ultrasound minimal stones - 07/24 renal ultrasound 5 mm right 24 hour urine 04/21 good volume over 2 L, good citrate at 500, low oxalate below 20, high calcium and high sodium - 08/21 24 hour urine with good volume, good citrate, low oxalate and medium calcium Intervention - 11/21 ESWL left Continue vitamin B6 and review in 6 months [facility] Medical History Asthma Bipolar 1 disorder Borderline high blood pressure High cholesterol Renal stones Surgical History History of Hx of appendectomy Hx of lithotripsy Hx of reduction mammoplasty Social History Patient Tobacco Use Status: Never used Tobacco Review of Systems Const Denies chills and Denies fever(s) Card Reports no additional complaints and Denies syncope Resp Denies cough GI Denies abdominal pain and Denies heartburn Reports as per HPI and Denies change in libido Neuro Denies syncope Psych Denies change in libido Endo Denies change in libido Physical Exam Const General: cooperative, healthy appearing, comfortable and no acute distress Orientation/consciousness: patient oriented x3 HEENT Face and sinus: Yes normal facial exam Mouth: moist mucous membranes Neck Neck: Yes normal visual inspection, Yes full ROM and Yes trachea midline Chest Chest palpation & inspection: normal inspection of the chest Resp Effort & Inspection: normal respiratory effort, able to speak in complete sentences and no respiratory distress GI Inspection: Yes normal to inspection Back/Spine/Pelvis Cervical Spine: normal cervical lordosis Thoracic/Lumbar Spine: thoracic and lumbar spine normal to inspection Skin General skin exam: no rashes or lesions noted Neuro General: patient oriented x3, gait normal, tone normal and moves all extremities Extrem General: Yes normal to inspection and Yes capillary refill normal Assessment & Plan Assessment & Plan (1) Renal stones: Code(s): N20.0 - Calculus of kidney Category: Medical Plan Twelve month follow-up renal ultrasound Orders: Orders US renal BI 12 Months N20.0 - Calculus of kidney Patient Instructions: This note is constructed using voice recognition software. While every effort has been made to ensure accuracy elevator pilot errors may have been included. Imaging studies, laboratory and physical exam results were discussed and reviewed in detail. No major barriers to patient understanding were identified. An opportunity to ask questions regarding the treatment plan was provided. All questions were answered. The patient expressed understanding and agreement with the above treatment plan. The patient is aware they should contact our office by phone for worsening of their current condition or the appearance of new urologic symptoms. Compliance is encouraged with any medications and followup testing that is ordered. It is a privilege to participate in the urologic care of your patient. If you have any questions or concerns regarding treatment for the above conditions, or other urologic issues, please do not hesitate to contact me. The office telephone contact is [phone]. Sincerely, Dr Og Mejía MD, [facility] - Urology Compassionate Specialist Care for the Genitourinary System Coding Level of Care Code Est Pt Level 4 (95287) Diagnoses Renal stones N20.0
--- OUTSIDE RECORDS SUMMARY | 2024-08-01 11:21 | XMS_ITS | Clinical Summary ---
Author Organization [employer] Address [address] [place] [address] 7 [place] [address] Care Team Providers Care Financial Services Assistant Name Role Phone PcpJohnny Unassigned Primary Care Provider U navailable Allergies Active Allergy Reactions Criticality Noted Date Comments Wound Dressings 05/05/2022 Other reaction(s): Excoriation of skin backing of Medicaton patches Amoxicillin-Pot Clavulanate Nausea Only 04/23/2017 GI issues Hydrochlorothiazide Other 05/05/2022 Levofloxacin Hallucinations High 04/23/2017 Other reaction(s): agitation, angry,hostile Mental status changes Mental status changes Sulfa Antibiotics Unknown,Swelling 04/07/2017 Itchy rash and swelling Other reaction(s): whole body swelling,rash Itchy rash and swelling Tetracycline 05/05/2022 Other reaction(s): stomach upset Torsemide 05/05/2022 Black [place] Flavoring Agent (Non-Screening) Anaphylaxis,Swelling High 04/07/2017 Walnuts, throat closes Medications Fluticasone Furoate-Vilante rol (Breo Ellipta) 100-25 MCG/ACT aerosol powder Inhale. 05/11/19 Active montelukast (Singulair) 5 MG chewable tablet Active montelukast (Singulair) 10 MG tablet Singulair Active valsartan (Diovan) 160 MG tablet Valsartan Active pyridoxine (Vitamin B-6) 100 MG tablet Daily, 0 Refills, Maintenance, 11/20/21 6:55:00 EDT, Partial fill upon patient request if the prescription is for a schedule II opioid drug. 11/21/19 Active cholecalciferol (Vitamin D-3) 1.25 MG (33482 UT) capsule Take 25 mcg by mouth. 11/21/19 Active albuterol 108 (90 Base) MCG/ACT inhaler if needed. Act dayna albuterol 108 (90 Base) MCG/ACT inhaler if needed. 10/04/19 Active ARIPiprazole (Abilify) 10 MG tablet 04/27/20 Active ARIPiprazole (Abilify) 10 MG tablet aripiprazole 10 mg tablet Active diazePAM (Valium) 5 MG tablet Take 5 mg by mouth at bedtime. 09/19/19 Active montelukast (Singulair) 10 MG tablet montelukast 10 mg tablet TAKE 1 TABLET BY MOUTH EVERY DAY 05/18/19 Active valsartan (Diovan) 160 MG tablet Take 160 mg by mouth in the morning. 04/22/20 Active rosuvastatin (Crestor) 10 MG tablet Take 10 mg by mouth in the morning. 07/22/19 Active Nystop 364777 UNIT/GM powder APPLY TO THE AFFECTED AREA TOPICALLY TWICE DAILY 05/28/19 23 Active gemfibrozil (Lopid) 600 MG tablet Take 600 mg by mouth 2 times daily. 09/15/19 23 Active buPROPion XL (Wellbutrin XL) 150 MG 24 hr tablet Take 150 mg by mouth in the morning. 12/15/19 23 Active cholecalciferol (Vitamin D-3) 10 MCG (400 UNIT) tablet Inhale 1 puff every day by inhalation route as directed for 90 days. 12/08/19 23 Active chlorhexidine (Peridex) 0.12 % solution 11/11/19 23 Active diazePAM (Valium) 5 MG tablet Take 1 tablet by mouth at bedtime. Active montelukast (Singulair) 10 MG tablet Take 1 tablet by mouth in the morning. Active ARIPiprazole (Abilify) 15 MG tablet Take 1 tablet by mouth at bedtime. Active gemfibrozil (Lopid) 600 MG tablet Take 1 tablet by mouth 2 times daily. Active valsartan (Diovan) 160 MG tablet Take 1 tablet by mouth in the morning. Active magnesium 30 MG tablet Take 30 mg by mouth 2 times daily. Active cyanocobalamin (Vitamin B-12) 100 MCG tablet Take 100 mcg by mouth in the morning. Active betamethasone dipropionate 0.05 % cream APPLY THIN LAYER TOPICALLY TO THE AFFECTED AREA EVERY DAY 04/13/20 Active buPROPion XL (Wellbutrin XL) 300 MG 24 hr tablet Take 1 tablet by mouth in the morning. Active montelukast (Singulair) 10 MG tablet Take 10 mg by mouth. 05/18/19 20 Active escitalopram (Lexapro) 10 MG tablet Take 10 mg by mouth at bedtime. 12/28/19 22 2024 Discontinued ibuprofen 800 MG tablet Take 1 tablet (800 mg) by mouth every 6 (six) hours if needed for mild pain for up to 6 days. 24 tablet 07/13/19 25 2024 Encounters Date Type Department Care Team Description 07/26/2024 2:00 PM EDT Office Visit [facility] [address] [place] [address] Francine Mckenzie LLD 07/12/2024 9:00 AM EDT Office Visit [address] [address] Francine Mckenzie LLD 07/02/2024 2:00 PM EST Office Visit [address] [address] Paige Rosales, MARCO 06/29/2024 10:30 AM EST Office Visit [facility] D[facility]AL [address] [place] [address] Paige Rosales, MARCO 06/15/2024 Orders Only [facility] [address] [place] [address] Brady Armendariz Jr., DMD 06/15/2024 Orders Only [facility] [address] [place] [address] Brady Armendariz Jr., DMD 06/13/2024 9:00 AM EST Office Visit [address] [address] Minh Arias DDS 05/31/2024 9:00 AM EST Office Visit [address] [place] [address] Paige Rosales LLD 05/17/2024 9:00 AM EST Office Visit [address] [address] Paige Rosales LLD from Last 3 Months Family History Medical History Relation Name Comments Diabetes Mother Relation Name Status Comments Mother Social History Tobacco Use Types Packs/Day Years Used Date Smoking Tobacco: Former Cigarettes Tobacco Cessation:Counseling Given: Not Answered Alcohol Use Standard Drinks/Week Comments Yes 0 (1 standard drink = 0.6 oz pur e alcohol) Comments Unknown Sex and Gender Information Value Date Recorded Sex Assigned at Female 05/05/2022 10:00 AM EST Legal Sex Female 5:35 PM EDT Gender Identity Female 05/05/2022 10:00 AM EST Sexual Orientation Choose not to disclose 2022 10:00 AM EST Plan of Treatment Upcoming Encounters Date Type Department Care Team (Late st Contact Info) Description 08/09/2024 2:00 PM EDT Office Visit [facility] DENTAL [address] [place] [address] Francine Mckenzie LLD [address] [place] [address] 04/04/2025 10:00 AM EST Office Visit [address] [address] Renee Daniel Health Maintenance Due Date Last Done Comments CT Colonography 1965 Colonoscopy 1965 Colorectal Cancer Screening 1965 Depression Screening 1965 FIT DNA/Cologuard 1965 FIT 1965 FOBT 1965 HIV Screening 1965 Lipid Panel 1965 SDOH Screening 1965 Sigmoidoscopy 1965 Alcohol/Substance Use Screening 1977 Hepatitis C Screening 11/10/1983 DTaP/Tdap/Td Vaccines (1 - Tdap) 1984 Hepatitis B Vaccines (1 of 3 - 19+ 3-dose series) 1984 Pneumococcal Vaccine: 50+ Years (1 of 2 - PCV) 1984 Pap Smear 1986 Cervical Cancer Screening 11/10/1995 HPV/Cotest 11/10/1995 Zoster Vaccines (1 of 2) 11/10/2015 COVID-19 Vaccine (3 - season) 2024 09/04/2020, 08/07/2020 Influenza Vaccine (#1) 2024 Dental Oral Exam 09/19/2024 03/21/2024, 01/2024, 03/07/2023, Additional history exists Dental Prophylaxis 09/19/2024 03/21/2024, 0 09/09/2023, 03/07/2023, Additional history exists Tobacco Screening 03/21/2025 03/21/2024 Dental X-Ray: Bitewings 03/22/2025 03/21/20 24, 08/18/2022, 02/16/2022, Additional history exists Mammogram 06/29/2025 06/29/2023, 06/03, 05/26/2022, Additional history exists Dental X-Ray: Full Mouth 03/22/2027 024, 06/18/2021, 07/29/2008 RSV Patients and Patients Aged 60 years or older (1 - 1-dose 75+ series) 2040 HIB Vaccines Aged Out No longer eligi ble based on patient's age to complete this topic HPV Vaccines Aged Out No longer eligi ble based on patient's age to complete this topic Hepatitis A Vaccines Aged Out No long er eligible based on patient's age to complete this topic IPV Vaccines Aged Out No longer eligi ble based on patient's age to complete this topic Meningococcal Vaccine Aged Out No melanie poornima eligible based on patient's age to complete this topic RSV under 20 months Aged Out No longe r eligible based on patient's age to complete this topic Rotavirus Vaccines Aged Out No longer eligible based on patient's age to complete this topic Procedures Procedure Name Priority Date/Time Associated Diagnosis Comments CASE PRESENTATION, DETAILED AND EXTENSIVE TREATMENT PLANNING Routine 07/26/2024 2:00 PM EDT 11 CROWN - PORCELAIN FUSED TO PREDOMINANTLY BASE METAL Routine 07/26/2024 2:00 PM EDT 11 CROWN PREP Routine 07/12/2024 9:00 AM EDT 11 ROOT CANAL Routine 07/12/2024 12:00 AM EDT CASE PRESENTATION, DETAILED AND EXTENSIVE TREATMENT PLANNING Routine 07/02/2024 2:00 PM EST 8 DILL(V) RESIN-BASED COMPOSITE - 3 SURF, ANTERIOR Routine 07/02/2024 2:00 PM EST CASE PRESENTATION, DETAILED AND EXTENSIVE TREATMENT PLANNING Routine 06/29/2024 10:30 AM EST 8 INTRAORAL - PERIAPICAL FIRST RADIOGRAPHIC IMAGE Routine 06/29/2024 10:30 AM EST 8 LIMITED ORAL EVALUATION - PROBLEM FOCUSED Routine 06/29/2024 10:30 AM EST CASE PRESENTATION, DETAILED AND EXTENSIVE TREATMENT PLANNING Routine 06/13/2024 9:00 AM EST 29 ENDODONTIC THERAPY, PREMOLAR TOOTH Routine 06/13/2024 9:00 AM EST CASE PRESENTATION, DETAILED AND EXTENSIVE TREATMENT PLANNING Routine 05/31/2024 9:00 AM EST 9 DL RESIN-BASED COMPOSITE - 2 SURF, ANTERIOR Routine 05/31/2024 9:00 AM EST CASE PRESENTATION, DETAILED AND EXTENSIVE TREATMENT PLANNING Routine 05/17/2024 9:00 AM EST 6 MDFL RESIN-BASED COMPOSITE - 4 OR MORE SURFACES (ANTERIOR) Routine 05/17/2024 9:00 AM EST Full PROPHYLAXIS - ADULT Routine 024 9:40 AM EST INTRAORAL - COMPLETE SERIES OF RADIOGRAPHIC IMAGES Routine 03/21/2024 9:40 AM EST PERIODIC ORAL EVALUATION - ESTABLISHED PATIENT Routine 03/21/2024 9:40 AM EST from Last 3 Months or Most Recently Relevant to Health Maintenance Insurance [facility] MEDICAID STAND ADULT Care Teams Financial Services Assistant Relationship Specialty Start Date End Date Johnny Lorenzo Unassigned PCP - General Family Medicine 08/30/22
--- OUTSIDE RECORDS SUMMARY | 2024-08-01 11:21 | XMS_ITS | Encounter Summary ---
Author Organization [employer] Address [address] [place] [address] [place] [address] Care Team Providers Care Medical Technologist Clinical Name Role Phone PcpJohnny Unassigned Primary Care Provider U navailable Encounter Details Date Type Department Care Team (Latest Contact Info) Description 02/16/2022 Abstract [facility] CONVERSION[facility] Dental, Provider, DDS Social History Tobacco Use Types Packs/Day Years Used Date Smoking Tobacco: Never Assessed Comments Unknown Sex and Gender Information Value Date Recorded Sex Assigned at Female 05/05/2022 10:00 AM EST Legal Sex Female 5:35 PM EDT Gender Identity Female 05/05/2022 10:00 AM EST Sexual Orientation Choose not to disclose 2022 10:00 AM EST documented as of this encounter Plan of Treatment Upcoming Encounters Date Type Department Care Team (Late st Contact Info) Description 08/09/2024 2:00 PM EDT Office Visit [facility] DENTAL [address] [place] [address] Francine Mckenzie LLD [address] [place] [address] 04/04/2025 10:00 AM EST Office Visit [facility] DENTAL [address] [place] [address] Renee Daniel documented as of this encounter Visit Diagnoses Not on filedocumented in this encounter Care Teams Medical Technologist Clinical Relationship Specialty Start Date End Date PcpJohnny Unassigned PCP - General Family Medicine 08/30/22 documented as of this encounter
--- OUTSIDE RECORDS SUMMARY | 2024-08-01 11:21 | XMS_ITS | Encounter Summary ---
Author Organization [employer] Address [address] [place] [address] Care Team Providers Care Director Of Pulmonary Unit Name Role Phone Pcp, Johnny Unassigned Primary Care Provider Praveen sims Encounter Details Date Type Department Care Team (Late st Contact Info) Description 06/15/2024 Orders Only [facility] DENTAL [address] [place] [address] Brady Armendariz Jr., DMD [address] [place] [address] Social History Tobacco Use Types Packs/Day Years Used Date Smoking Tobacco: Former Cigarettes Alcohol Use Standard Drinks/Week Comments Yes 0 [...] Description 08/09/2024 2:00 PM EDT Office Visit [facility] DENTAL [address] [place] [address] Francine Mckenzie LLD [address] [place] [address] 04/04/2025 10:00 AM EST Office Visit [facility] DENTAL [address] [place] [address] Renee Daniel documented as of this encounter Visit Diagnoses Not on filedocumented in this encounter Care Teams Director Of Pulmonary Unit Relationship Specialty Start Date End Date Johnny Lorenzo Unassigned PCP - General Family Medicine 08/30/22 documented as of this encounter
--- OUTSIDE RECORDS SUMMARY | 2024-08-01 11:21 | XMS_ITS | Encounter Summary ---
Author Organization [employer] Address [address] [place] [address] 7 [place] [address] Care Team Providers Care Bobbin Hauler Name Role Phone PcpJohnny Unassigned Primary Care Provider U navailable Encounter Details Date Type Department Care Team (Latest Contact Info) Description 07/13/2018 Abstract [facility] CONVERSION[facility] Dental, Provider, DDS Social [...] Description 08/09/2024 2:00 PM EDT Office Visit [facility] DENTAL [address] [place] [address] Francine Mckenzie LLD [address] [place] [address] 04/04/2025 10:00 AM EST Office Visit [facility] DENTAL [address] [place] [address] Renee Daniel documented as of this encounter Visit Diagnoses Not on filedocumented in this encounter Care Teams Bobbin Hauler Relationship Specialty Start Date End Date PcpJohnny Unassigned PCP - General Family Medicine 08/30/22 documented as of this encounter
--- OUTSIDE RECORDS SUMMARY | 2024-08-01 11:21 | XMS_ITS | Encounter Summary ---
Author Organization [employer] Address [address] [place] [address] 7 [place] [address] Care Team Providers Care Port Engineer Name Role Phone PcpJohnny Unassigned Primary Care Provider U navailable Encounter Details Date Type Department Care Team (Latest Contact Info) Description 01/17/2019 Abstract [facility] CONVERSION[facility] Dental, Provider, DDS Social [...] Description 08/09/2024 2:00 PM EDT Office Visit [facility] DENTAL [address] [place] [address] Francine Mckenzie LLD [address] [place] [address] 04/04/2025 10:00 AM EST Office Visit [facility] DENTAL [address] [place] [address] Renee Daniel documented as of this encounter Visit Diagnoses Not on filedocumented in this encounter Care Teams Port Engineer Relationship Specialty Start Date End Date PcpJohnny Unassigned PCP - General Family Medicine 08/30/22 documented as of this encounter
--- OUTSIDE RECORDS SUMMARY | 2024-08-01 11:21 | XMS_ITS | Data Portability ---
Author Organization [place] Ramiro Gil Sdjeremías [facility] Address [address] [place] [address] Care Team Providers Care Tree Planter Name Role Phone SEDRICK GODOY Primary Care Provider SEDRICK GODOY Referring Provider Assessment Encounter Date [...] hip strength. Frequency: 2x/week for 6 weeks [email or web address] Not available 09/08/2023 12:50:59 09/12/2023 09/12/2023 Assessment: [...] She will continue with physical therapy and dgeo-krr-loxzagj medication as needed. If ongoing symptoms refractory to conservative management, would recommend MRI left hip to evaluate for any abductor tendon tear and/or hamstring tendinitis/partia l tearing. Patient can call to request MRI if symptoms dictate. All questions answered today. [email or web address] Not available 09/13/2023 13:02:24 Plan of Treatment [...] Time Osteoarthri tis of left knee joint [id number] 09 Active 2024 Dinah Merino PA-C [address], [facility] [place], [place], [address], [facility] 5 12:27:35 Synovial popliteal cyst of left knee Active 2024 Dinah Merino PA-C [address], [place], [address], [facility] 12:27:51 Problem Notes None recorded. Procedures Surgical History Date Name Laterality Status Provider Name and Address Organization Details Recorded Time 09/13/19 Hip Kenalog Injection, L/R w/US completed Rowdy Palomares MD [address], [place], [address], [facility] 09/13/2023 13:02:13 09/12/19 [id number] Therapeutic Exercise (1:1) completed Krish Ambrocio DPT [address], [place], [address], [facility] 09/12/2023 14:22:30 09/12/19 85048: Manual therapy completed Krish Ambrocio DPT [address], [place], [address], [facility] 09/12/2023 14:22:32 09/08/19 47742 Therapeutic Exercise (1:1) completed Luisito De Souza PTA [address], [place], [address], [facility] 09/08/2023 12:51:07 09/05/19 45810 Therapeutic Exercise (1:1) completed Krish Ambrocio DPT [address], [place], [address], [facility] 09/02/2023 13:44:28 09/02/19 68743 Therapeutic Exercise (1:1) completed Luisito De Souza PTA [address], [place], [address], [facility] 09/02/2023 12:22:56 08/26/19 45558 Therapeutic Exercise (1:1) completed Luisito De Souza PTA [address], [place], [address], [facility] 08/26/2023 12:22:16 08/26/19 91978: Manual therapy completed Luisito De Souza, CURING PRESS MAINTAINER [address], [place], [address], [facility] 08/26/2023 12:22:20 08/24/19 84047 Therapeutic Exercise (1:1) completed Krish Ambrocio DPT [address], [place], [address], [facility] 08/24/2023 13:13:31 08/24/19 19651: Low complexity PT Eval completed Krish Ambrocio DPT [address], [place], [address], [facility] 08/24/2023 13:13:27 08/24/19 G8417 BMI Above Upper Parameters, F/U Documented completed Krish Ambrocio DPT [address], [place], [address], [facility] 08/24/2023 13:13:50 08/24/19 G8427 Current Medication Documented completed Krish Ambrocio DPT [address], [place], [address], [facility] 08/24/2023 13:13:41 Appendectomy completed JOSE RAUL DELGADO [facility] 09/13/2023 09:28:55 lithotripsy completed JOSE RAUL THERRIANGELA [facility] 09/13/2023 09:29:01 delivery completed JOSE RAUL PINEDARIANGELA [facility] 09/13/2023 09:29:06 Ankle/Foot Surgery completed JOSE RAUL PINEDARIANGELA [facility] 09/13/2023 [...] Name and Address Organization Details Recorded Time 541096 Substance with sulfonami de structure and antibacte rial mechanism of action (substanc e) medicatio n Not available Not available Not available 07/04/20232017 82055 8003 SNOMED Aller gyRea ction : 'Skin React ion'; Not Available [facility] 4 15:27:10 350310 Levaquin medicatio n Not available Not available Not available 07/04/20232017 85804 2 RxNorm Aller gyRea ction : 'Skin React ion'; Not Available [facility] 4 15:27:10 222062 walnut allergeni c extract food Not available Not available Not available 07/04/20232017 96163 0 RxNorm Not Available [facility] 4 15:27:10 Medications Name Sig Start Date [...] Updated DateTime 09/13/2023 162.56 cm 39 kg/m2 712060.47 g JOSE RAUL DELGADO [facility] 09/13/2023 09:27:38 Date Recorded Body height Body mass index (BMI) Body weight Provider Name and Address Organization Details Last Updated DateTime 06/27/2024 162.56 cm 39 kg/m2 771886.47 g TONE L'HEUREUX [facility] 06/27/2024 10:42:12 Social History Question Answer Notes LastModified by Organizat ion Details LastModified Time Tobacco Smoking Status Former Smoker JOSE RAUL SANDY tabor [place] [facility] 09/13/2023 09:28:36 [...] History Nothing Reported. Medical History Condition Response Coronary Artery Disease N Anxiety/Depression N Emphysema N COPD N Pacemaker N Vascular Disease N Heart Trouble N Gastrointestinal Disease N Autoimmune disease N Inflammatory Joint disease N Orthotics N Arthritis Y Blood Clot N Acid Reflux (GERD) N Cancer N Stroke N Circulation Problems N Rheumatoid Arthritis N Arrhythmia N Headaches N Fibromyalgia N Allergies/Hayfever N Breathing or lung disorders N Nerve Disorders N Thyroid Problems N Kidney/Bladder Problems N Anemia N Heart Attack (MN) N Cholesterol N Diabetes N Bleeding Disorder N Seizures/Epilepsy N AIDS/HIV N Congestive Heart Failure (CHF) N Asthma Y Peripheral Vascular Disease N Sleep Apnea N Hepatitis N Heart Disease N Pulmonary Embolism N Hypertension Y Osteoporosis N Gynecological HistoryNo gynecological history recorded. Obstetrics History GPAL:G 0 P 0 0 0 0 Past Encounters Encounter ID Performer Location Encounter Start Date Encounter Closed Date Diagnosis/Indication Diagnosis SNOMED-CT Code Diagnosis ICD10 Code Diagnosis Note [id number] ELENA Ryanampjeremías on PT [address] [place] [address] 08/24/2023 11:59:09 08/24/2023 13:08:03 Trochanteric bursitis of left hip [id number] 51191 M70.62 [id number] Krish Ambrocio DPT [place] [facility] [address] [place] [address] 08/26/2023 11:09:23 08/26/2023 12:48:33 Trochanteric bursitis of left hip [id number] 97739 M70.62 [id number] Krish Ambrocio DPT [place] [facility] [address] [place] [address] 09/02/2023 11:19:24 09/02/2023 12:58:27 Trochanteric bursitis of left hip [id number] 14532 M70.62 [id number] Krish Ambrocio DPT [place] [facility] [address] [place] [address] 09/05/2023 12:28:36 09/05/2023 14:47:56 Trochanteric bursitis of left hip [id number] 69183 M70.62 [id number] Krish Ambrocio DPT [place] [facility] [address] [place] [address] 09/08/2023 11:15:02 09/08/2023 15:39:24 Trochanteric bursitis of left hip [id number] 37280 M70.62 [id number] Krish Ambrocio DPT [place] [facility] [address] [place] [place] [address] 09/12/2023 11:50:55 09/12/2023 14:51:30 Trochanteric bursitis of left hip [id number] 43454 M70.62 [id number] Rowdy Palomares MD [facility] on Clinical [address] [place] [address] 09/13/2023 09:15:07 10/05/2023 07:38:36 Pain of left hip joint 8549176880 27693 M25.552 Trochanter ic bursitis of left hip [id number] 13670 M70.62 [id number] ELENA Garcia [address] [place] [address] 06/27/2024 09:56:21 07/13/2024 10:03:08 Osteoarthritis of left knee joint [id number] 46376 M17.12 Synovial p opliteal cyst of left knee 5632613557 M71.22 Health Concerns Section Related Observation LastModified by Organization Detai ls LastModified Time None Recorded Concern Status LastModified by Organization Details LastModified Time None Recorded Advance Directives Directive None Recorded Payers Encounter Date Sequence Insurance Name Policy Number Policy Escalante Covered Member ID Escalante Member ID Guarantor Name 09/05/2023 2 [place] [employer] Fouzia Brar [id number] Fouzia Brar 09/05/2023 1 [place] [employer] [employer] Fouzia Brar [id number] Fouzia Brar 09/08/2023 2 [place] Fouzia Brar [id number] Fouzia Brar 09/08/2023 1 [place] Fouzia Brar [id number] Fouzia Brar 09/12/2023 2 [place] Fouzia Brar [id number] Fouzia Brar 09/12/2023 1 [place] [employer] Fouzia Brar [id number] Fouzia Brar 09/13/2023 2 [place] Fouzia Brar [id number] Fouzia Brar 09/13/2023 1 [place] Fouzia Brar [id number] Fouzia Brar 06/27/2024 2 [place] Fouzia Brar [id number] Fouzia Brar 06/27/2024 1 [place] Fouzia Brar [id number] Fouzia Brar Notes Date Note Type Note Provider Name and Address Organization Details Recorded Time 09/05/2023 text/html Patient states h er symptoms have remained unchanged. The piriformis release last visit gave her some symptom relief for the day. Krish Ambrocio, DPT [address], [place], [address], [facility] 09/05/2023 14:43:07 09/08/2023 text/html Pt. continues to report that her symptoms remain unchanged. She experiences relief after the piriformis release for 24 hours, but then her symptoms come back feeling discourgaged about her progress. Luisito De Souza, CURING PRESS MAINTAINER [address], [place], [address], [facility] 09/08/2023 12:51:31 09/12/2023 text/html Patient reports that she has been feeling good after PT, but it does not last. States that this past weekend was tough due to constant pain and intermittent cramping in the posterior lateral aspect of the hip Krish Ambrocio, [place] [address], [place], [address], [facility] [...] Palomares MD [address], [place], [address], [facility] 09/13/2023 13:02:46 06/27/2024 text/html I am seeing the patient today under the supervision of {Kristen Alexander'[facility]}} who was available but who [...] Bilatera l}} knee from May 2024 Hood Angelique uploaded into PACS and independently reviewed today at [facility] demonstrates mild medial compartment space narrowing with [...] with surgical arthroscopy being last resort. 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 Patient will follow-up as symptoms dictate. All of her concerns are addressed and she understands and agrees with the plan. Speech recognition nurse's assistant software was used to create portions of this document. An attempt at proofreading has been made to minimize errors. Please call for corrections. Dinah Merino PA-C [address] [facility] [address], [place], [address], [facility] 06/27/2024 12:28:36 OBGyn Episode No OBEpisode recorded.
== END 2024-08-01 10:49 | disposition home or self-care (01) ==
LOC: HO.HUSH 09:55
PROVIDERS: PCP Internal Medicine; Visit Provider Urology
DX: N20.0 Calculus of kidney (principal)
CPT/HCPCS: 99214

== ENCOUNTER → 2024-08-01 09:55 | Outpatient (BNVA) | payer MEDICARE, MEDICAID, SELFPAY | PROVIDERS: PCP Internal Medicine; Visit Provider Urology | DX: N20.0 Calculus of kidney (principal) | CPT/HCPCS: 99212 ==

== ENCOUNTER 2025-01-08 11:46 | Outpatient (REF) | payer MEDICARE, MEDICAID, SELFPAY ==
[2025-01-08 13:01] LABS: MANUAL DIFF FLAG NO
[2025-01-08 13:16] LABS: Hematocrit 39.7 % (37.0-47.0); Hemoglobin 13.0 g/dl (12.0-16.0); Imm Gran Abs Auto 0.03 X10*3/uL (0.00-0.03); Imm Gran Pct Auto 0.4 % (0.0-0.4); Lymphocytes Absolute Auto 1.6 X10*3/uL (1.2-4.9); Mean Corpuscular HGB Conc 32.7 g/dl (31.0-35.0); Mean Corpuscular Hemoglobin 31.8 pg (27.0-33.0); Mean Corpuscular Volume 97.1 fL (80.0-98.0); NRBC Abs Auto 0.000 X10*3/uL (0.0-0.012); NRBC Pct Auto 0.0 /100WBC (0.0-0.2); Platelet Count 269 X10*3/uL (160-400); Red Blood Count 4.09 X10*6/uL (4.20-5.50); White Blood Count 7.7 X10*3/uL (4.8-10.8)
[2025-01-08 13:45] LABS: Alanine Aminotransferase 34 U/L (0-31); Albumin Level 4.4 g/dL (3.5-5.0); Alkaline Phosphatase 82 U/L (39-117); Anion Gap 11 (12-20); Aspartate Amino Transferase 31 U/L (5-31); Blood Urea Nitrogen 23 mg/dL (9-16); Calcium 9.4 mg/dL (8.4-10.2); Carbon Dioxide 29 mmol/L (22-29); Chloride 107 mmol/L (96-108); Cholesterol 190 mg/dL (<200); Estimated Glomerular Filt Rate > 60; HDL Cholesterol 63 mg/dL (>40); Potassium 4.0 mmol/L (3.3-5.1); Sodium 143 mmol/L (135-145); Total Protein 6.8 g/dL (6.5-8.0); Triglycerides 58 mg/dL (<150)
--- OUTSIDE RECORDS SUMMARY | 2025-01-08 14:17 | XMS_ITS | Encounter Summary ---
Author Organization [facility] Address [address] [place] [address] Phone Care Team Providers Care Stock Lifter Name Role Phone Ej Ackerman DO Unavailable Vanessa Gabriel RN FIRST ASSIST Unavailable Pam Winston RN FIRST ASSIST Unavailable Christina Zelaya MD Unavailable Nita Small DO Unavailable Monica Gardner RN FIRST ASSIST Unavailable Ej Ackerman DO Primary Care Provider [phone] Encounter Details Date Type Department Care Team (Late st Contact Info) Description 07/26/2017 Ancillary Orders [facility], X-Ray - [facility] [address] [place] [address] Ej Ackerman DO [address] [facility] [place] [address] Pain Social History Tobacco Use Types Packs/Day Years Used Date Smoking Tobacco: Never Assessed Comments Unknown Sex and Gender Information Value Date Recorded Sex Assigned at Female 09/26/2018 9:17 AM EDT Legal Sex Female 9:40 PM EDT Gender Identity Female 09/26/2018 9:17 AM EDT Sexual Orientation Straight 09/26/2018 9: 17 AM EDT documented as of this encounter Plan of Treatment Upcoming Encounters Date Type Department Care Team (Late st Contact Info) Description 04/06/2024 Procedure Pass [address] [address] 04/15/2025 10:30 AM EST Appointment [facility] [address] [place] [address] Ej Ackerman DO [address] [facility] [place] [address] [place] [address] [email or web address] documented as of this encounter Results * XR KNEE 4 OR MORE VIEWS (LEFT) (07/26/2017 11:01 AM EDT) Anatomical Region Laterality Modality Knee Left Radiographic Keshia ging 07/26/2017 11:1 5 AM EDT Impressions 07/26/2017 11:16 AM EDT Negligible medial compartment osteoarthritis. Otherwise unremarkable plain film appearance of the knee POS [id number] Narrative 07/26/2017 11:16 AM EDT 4 views. No comparison No fracture, dislocation or gross joint effusion. Negligible marginal spurring medially. No other arthritic changes. No signs of infection or tumor. Procedure Note Toni Haney MD - 07/26/2017 4 views. No comparison No fracture, dislocation or gross joint effusion. Negligible marginal spurring medially. No other arthritic changes. No signs of infection or tumor. IMPRESSION: Negligible medial compartment osteoarthritis. Otherwise unremarkable plainfilm appearance of the knee POS [id number] us Ej Ackerman DO IMG XR LOWER EXTREMITY Final Res ult documented in this encounter Visit Diagnoses Diagnosis Pain Generalized pain Pain Generalized pain documented in this encounter Care Teams Stock Lifter Relationship Specialty Start Date End Date Ej Ackerman DO PCP - General 05/05/17 Ej Ackerman DO Historical LMR Provider 02/14/17 Vanessa Gabriel RN FIRST ASSIST [address] [place] [address] [email or web address] Historical LMR Provider 02/14/17 2 Pam Winston NP [address] [place] [address] Historical LMR Provider 02/14/17 2 Christina Zelaya MD [address] [address] [email or web address] Historical LMR Provider 02/14/17 05/09/21 Nita Small DO [address] [place] [address] Historical LMR Provider 02/14/17 2 Monica Gardner NP [address] [place] [address] Historical LMR Provider 02/14/17 2 documented as of this encounter Additional Source Comments The information contained in this document represents components of the legal health record. It is not the complete legal health record.[facility]
--- OUTSIDE RECORDS SUMMARY | 2025-01-08 14:17 | XMS_ITS | Encounter Summary ---
Author Organization [facility] Address [address] [place] [address] Phone Care Team Providers Care Patient Care Nursing Assistant Name Role Phone Ej Ackerman DO Unavailable Vanessa Gabriel BAND EDGER Unavailable Pam Winston BAND EDGER Unavailable [phone] Christina Zelaya MD Unavailable Nita Small DO Unavailable Monica Gardner BAND EDGER Unavailable [phone] Ej Ackerman DO Primary Care Provider [phone] Encounter Details Date Type Department Care Team (Late st Contact Info) Description 06/05/2018 Ancillary Orders Virtual Department [address] [place] [address] Ej Ackerman DO [address] [facility] [address] [email or web address] Visit for screening mammogram Social History Tobacco Use Types Packs/Day Years [...] st Contact Info) Description 04/06/2024 Procedure Pass [facility], [address] [address] 04/15/2025 10:30 AM EST Appointment [facility] [address] [place] [address] ReinaEj chau, DO 179 [facility] [address] [email or web address] documented as of this encounter Results * BI MAMMOGRAM SCREENING WITH TOMOSYNTHESIS WITH CAD (BILATERAL) (06/08/2018 11:37 AM EST) Anatomical Region Laterality Modality Breast Left, Breast Right, Breast Bilateral Bila teral Mammography 06/08/2018 1:22 PM EST Impressions 06/08/2018 1:23 PM EST Stable appearance relative to prior imaging. No findings suggestive of malignancy are seen. BI-RADS CATEGORY: 1 - Negative. DENSITY: There are scattered fibroglandular densities. POS - [id number] Narrative 06/08/2018 1:23 PM EST Full-field digital mammography is obtained with computer-aided detection. Comparison with prior imaging from 05/31/2013 is made with older imaging dating back as far as 04/01/2003 also reviewed. There is scattered fibroglandular density evident in the breasts. In addition to 2-D C view imaging, tomosynthesis images are obtained in two projections of each breast. No dominant soft tissue mass of concern, suspicious cluster of calcifications, significant interval skin changes, or architectural distortion is identified. Procedure Note Moreno Osorio MD - 06/08/2018 Full-field digital mammography is obtained with computer-aided detection.Comparison with prior imaging from 05/31/2013 is made with older imagingdating back as far as 04/01/2003 also reviewed. There is scattered fibroglandular density evident in the breasts. Inaddition to 2-D C view imaging, tomosynthesis images are obtained in twoprojections of each breast. No dominant soft tissue mass of concern, suspicious cluster ofcalcifications, significant interval skin changes, or architecturaldistortion is identified. IMPRESSION: Stable appearance relative to prior imaging. No findings suggestive ofmalignancy are seen. BI-RADS CATEGORY: 1 - Negative. DENSITY: There are scattered fibroglandular densities. POS - [id number] us Ej Ackerman DO IMG MG EXAMS Final Result documented in this encounter Visit Diagnoses Diagnosis Visit for screening mammogram Visit for screening mammogram documented in this encounter Care Teams Patient Care Nursing Assistant Relationship Specialty Start Date End Date Ej Ackerman DO PCP - General 05/05/17 Ej Ackerman DO Historical LMR Provider 02/14/17 Vanessa Gabriel BAND EDGER [address] [place] [address] [email or web address] Historical LMR Provider 02/14/17 2 Pam Winston NP [address] [place] [address] Historical LMR Provider 02/14/17 2 Christina Zelaya MD [address] [place] [address] Historical LMR Provider 02/14/17 05/09/21 Nita Small DO [address] [place] [address] Historical LMR Provider 02/14/17 2 Monica Gardner NP [address] [place] [address] Historical LMR Provider 02/14/17 2 documented as of this encounter Additional Source Comments The information contained in this document represents components of the legal health record. It is not the complete legal health record.[facility]
--- OUTSIDE RECORDS SUMMARY | 2025-01-08 14:17 | XMS_ITS | Encounter Summary ---
Author Organization [facility] Address [address] [place] [address] Phone Care Team Providers Care Snout Puller Name Role Phone Ej Ackerman DO Unavailable Ej Ackerman DO Primary Care Provider [phone] Encounter Details Date Type Department Care Team (Late st Contact Info) Description 05/20/2022 Procedure Pass [address] [address] Social History Tobacco Use Types Packs/Day Years Used Date Smoking Tobacco: Never Smokeless Tobacco: Never Alcohol Use Standard Drinks/Week Comments Yes 0 (1 standard drink = 0.6 oz pur e alcohol) rarely Comments No Sex and Gender Information Value Date Recorded Sex Assigned at Female 09/26/2018 9:17 AM EDT Legal Sex Female 9:40 PM EDT Gender Identity Female 09/26/2018 9:17 AM EDT Sexual Orientation Straight 09/26/2018 9: 17 AM EDT documented as of this encounter Plan of Treatment Upcoming Encounters Date Type Department Care Team (Late st Contact Info) Description 04/06/2024 Procedure Pass [address] [address] 04/15/2025 10:30 AM EST Appointment [address] [address] Ej Ackerman DO 179 [place] [address] [email or web address] documented as of this encounter Visit Diagnoses Not on filedocumented in this encounter Care Teams Snout Puller Relationship Specialty Start Date End Date Meka Ej GarciaDO [email or web address] PCP - General 05/05/17 Ej Ackerman DO Historical LMR Provider 02/14/17 documented as of this encounter Additional Source Comments The information contained in this document represents components of the legal health record. It is not the complete legal health record.[facility]
--- OUTSIDE RECORDS SUMMARY | 2025-01-08 14:17 | XMS_ITS | Clinical Summary ---
Author Organization [facility] Address [address] [place] [address] Phone Care Team Providers Care Bridge Ironworker Name Role Phone Ej Ackerman Unavailable Ej Ackerman Radha Primary Care Provider [phone] Allergies Active Allergy Reactions Criticality Noted Date Comments Levofloxacin 04/23/2017 Mental status changes Sulfa (Sulfonamide Antibiotics) Swelling 04/07/2017 Itchy rash and swelling Tree Nut Swelling 04/07/2017 Walnuts, throat closes Medications OXcarbazepine (TRILEPTAL) 600 MG tablet Orally Active Medication-Free Text Citalopram Hydrobromide 35 Milligrams Tablet, Si tablet Orally Once a day Active simvastatin (ZOCOR) 10 MG tablet Take 20 mg by mouth every evening. Active albuterol (PROAIR HFA) 90 mcg/actuation inhaler Inhale 2 puffs into the lungs every 4 (four) hours as needed. Active cetirizine (ZYRTEC) 10 MG tablet Take 1 tablet by mouth daily as needed. Active MONTELUKAST SODIUM (SINGULAIR ORAL) Act dayna ARIPiprazole (ABILIFY) 5 MG tablet Take by mouth once. Active topiramate (TOPAMAX) 100 MG tablet Take 100 mg by mouth daily. Active lisinopril (PRINIVIL,ZESTRI L) 10 MG tablet Take 10 mg by mouth daily. Active silver sulfADIAZINE (SILVADENE) 1 % cream Apply topically daily. 50 g 08/15/201 9 Active Active Problems No known active problems Family History Medical History Relation Comments Dementia Maternal Grandmother Diabetes Maternal Grandmother Diabetes mellitus Maternal Grandmother CV disease Mother Cancer Mother Cervical cancer Mother Diabetes Mother Diabetes mellitus Mother Endometrial cancer Mother Heart attack Mother Hyperlipidemia Mother Ovarian cancer Mother Relation Status Comments Father Alive Maternal Grandmother Mother Alive Social History Tobacco Use Types Packs/Day Years Used Date Smoking Tobacco: Former Cigarettes 0.3 10 0 05/02/1982 - 05/02/1992 Smokeless Tobacco: Never Tobacco Cessation:Counseling Given: Not Answered Alcohol Use Standard Drinks/Week Comments Not Currently 0 (1 standard drink = 0.6 oz pur e alcohol) rarely Education Answer Date Recorded Are you interested in more education? Not on isabella e 08/27/2022 Are you concerned about learning? Not on file 08/27/2022 No 08/27/2022 No 08/27/2022 Digital Access Answer Date Recorded No 09/25/2022 No 09/25/2022 Reliable internet access at home? Not on file 09/25/2022 Device with a working camera? Not on file Comments No Sex and Gender Information Value Date Recorded Sex Assigned at Female 09/26/2018 9:17 AM EDT Legal Sex Female 9:40 PM EDT Gender Identity Female 09/26/2018 9:17 AM EDT Sexual Orientation Straight 09/26/2018 9: 17 AM EDT Last Filed Vital Signs Vital Sign Reading Time Taken Comments Blood Pressure 140/96 12/14/2018 10:36 AM EDT Pulse 71 12/14/2018 10:36 AM EDT Temperature 36.9 C (98.5 F) 12/14/2018 10:36 AM EDT Respiratory Rate 16 09/26/2018 9:08 AM EDT Oxygen Saturation 98% 12/14/2018 10:36 AM EDT Inhaled Oxygen Concentration - - Weight 104.3 kg (230 lb) 04/28/2019 10:09 AM EST Height 160 cm (5' 3 ) 04/28/2019 10:09 AM EST Body Mass Index 40.74 04/28/2019 10:09 AM EST Plan of Treatment Upcoming Encounters Date Type Department Care Team (Late st Contact Info) Description 04/06/2024 Procedure Pass [facility], [facility] [address] [place] [address] 04/15/2025 10:30 AM EST Appointment [facility], [facility] [address] [place] [address] Ej Ackerman DO [address] [place] [address] [email or web address] Health Maintenance Due Date Last Done Comments DEPRESSION SCREENING 1977 SMOKING Hx and SMOKELESS TOBACCO SCREENING 1978 HEPATITIS C SCREENING 11/10/1983 HIV ONE-TIME SCREENING (18-65 YEARS) 11/10/1983 COLOGUARD 2010 COLONOSCOPY 2010 COLORECTAL CANCER SCREENING 2010 FIT TEST 2010 FOBT 2010 SIGMOIDOSCOPY 2010 VIRTUAL COLONOSCOPY 2010 PNEUMOCOCCAL VACCINES (50+ years) (2 of 2 - PCV) 04/20/2017 04/20/2016 INFLUENZA VACCINE (#1) 2024 , 04/09/2020, 03/13/2019, Additional history exists COVID-19 VACCINE (2 - 2024- season) 2024 02/25/2021 CREATININE LEVEL 05/15/2025 05/15/2024 POTASSIUM LEVEL 05/15/2025 05/15/2024 MAMMOGRAM 06/29/2025 06/29/2023, 05/03, 04/07/2021, Additional history exists LIPID PANEL 05/15/2029 05/15/2024 Adult Td,Tdap Booster 07/04/2030 07/04/2020 ZOSTER VACCINES Completed 10/07/2018, 07/25/2018 HEPATITIS A VACCINES Aged Out No long er eligible based on patient's age to complete this topic HIB VACCINES Aged Out No longer eligi ble based on patient's age to complete this topic MENINGOCOCCAL VACCINES (ACWY) Aged Out No longer eligible based on patient's age to complete this topic MENINGOCOCCAL VACCINES (B) Aged Out N o longer eligible based on patient's age to complete this topic Medical Devices Not on file Procedures Procedure Name Priority Date/Time Associated Diagnosis Comments LIPID PANEL Routine 05/15/2024 12:32 PM EST Vitamin D deficiency, unspecified Hyperlipidemia, unspecified hyperlipidemia type COMPREHENSIVE METABOLIC PANEL Routine 05/15/2024 12:32 PM EST Vitamin D deficiency, unspecified Hyperlipidemia, unspecified hyperlipidemia type BI MAMMOGRAM SCREENING WITH TOMOSYNTHESIS WITH CAD (BILATERAL) Routine 06/29/2023 11:30 AM EST Breast screening from Last 3 Months or Most Recently Relevant to Health Maintenance Results * (ABNORMAL) Comprehensive metabolic panel (05/15/2024 12:32 PM EST) SODIUM 143 133 - 146 mmol/L [facility] POTASSIUM 4.4 3.3 - 5.1 mmol/L [facility] CHLORIDE 106 96 - 108 mmol/L [facility] CO2 27 21 - 35 mmol/L [facility] BUN 22(H) 6 - 19 mg/dL [facility] CREATININE 0.90 0.5 - 1.5 mg/dL [facility] GLUCOSE 90 70 - 99 mg/dL [facility] ALBUMIN 4.4 3.9 - 4.8 g/dL [facility] TOTAL PROTEIN 7.0 6.5 - 8.0 g/dL [facility] CALCIUM 9.9 8.4 - 10.3 mg/dL [facility] ALKALINE PHOSPHATASE 91 39 - 117 U/L [facility] TOTAL BILIRUBIN 0.4 0.0 - 1.2 mg/dL [facility] AST 23 0 - 37 U/L [facility] ALT 22 0 - 40 U/L [facility] GLOBULIN 2.6 1 - 4.8 g/dL [facility] EGFR 74 >59 mL/min/1.7 3m2 [facility] Comment:Estimated glomerular filtration rate calculated using the CKD-EPI refit equation. ANION GAP 14 10 - 20 mmol/L [facility] Blood 05/15/2024 12:3 2 PM EST 05/15/2024 12:35 PM EST us Ej A Bigda DO LAB BLOOD ORDERABLES Final Resul t [facility] [address] [place] [address] * (ABNORMAL) Lipid panel (05/15/2024 12:32 PM EST) HDL 68 mg/dL [facility] Comment: Interpretation <40 mg/dL: Low HDL cholesterol (major risk factor for CHD) Greater than or equal to 60 mg/dL: High HDL cholesterol ( negative risk factor for CHD) HDL - cholesterol is affected by a number of factors, e.g. smoking, excerise, hormones, sex and age. CHOLESTEROL 216 0 - 240 mg/dL [facility] TRIGLYCERIDES 53 30 - 160 mg/dL [facility] LDL 137(H) 50 - 129 mg/dL [facility] Comment: LDL levels in terms of risk for coronary heart disease: <100 mg/dL: Optimal 100-129 mg/dL: Near or above optimal 130-159 mg/dL: Borderline high 160-189 mg/dL: High >190 mg/dL: Very High CARDIAC RISK RATIO 3.2(L) 3.3 - 4.4 C [facility] Blood 05/15/2024 12:3 2 PM EST 05/15/2024 12:36 PM EST us Ej A Bigda DO LAB BLOOD ORDERABLES Final Resul t [facility] [address] [place] [address] * BI MAMMOGRAM SCREENING WITH TOMOSYNTHESIS WITH CAD (BILATERAL) (06/29/2023 11:30 AM EST) Anatomical Region Laterality Modality Breast Left, Breast Right, Breast Bilateral Bila teral Mammography 07/06/2023 11:4 7 AM EST Impressions 07/06/2023 11:48 AM EST No mammographic evidence of malignancy in either breast. Annual screening mammography is recommended. BI-RADS 1 NEGATIVE The patient will be notified of the results and recommendations. Narrative 07/06/2023 11:48 AM EST BI MAMMOGRAM SCREENING WITH TOMOSYNTHESIS WITH CAD (BILATERAL) Additional patient information: Screening. COMPARISON: Comparison is made with relevant prior imaging. Breast composition: There are scattered areas of fibroglandular density. FINDINGS: No abnormal masses, suspicious calcifications, or other significant findings are identified mammographically in either breast. Procedure Note Talia Baldwin MD - 07/06/2023 BI MAMMOGRAM SCREENING WITH TOMOSYNTHESIS WITH CAD (BILATERAL) Additional patient information: Screening. COMPARISON: Comparison is made with relevant prior imaging. Breast composition: There are scattered areas of fibroglandular density. FINDINGS: No abnormal masses, suspicious calcifications, or other significantfindings are identified mammographically in either breast. IMPRESSION: No mammographic evidence of malignancy in either breast. Annual screening mammography is recommended. BI-RADS 1 NEGATIVE The patient will be notified of the results and recommendations. us Ej A Bigda DO IMG MG EXAMS Final Result from Last 3 Months or Most Recently Relevant to Health Maintenance Insurance [address] [place], [place] [address] MEDICARE PART A & B [place] [id number] [place] [phone] MEDICARE PART A [place] [id number] [place] A & [place] [address] [address] MEDICARE PART A & B [facility] MEDICARE PART A & B Care Teams Bridge Ironworker Relationship Specialty Start Date End Date Ej Ackerman DO [email or web address] PCP - General 05/05/17 Ej Ackerman DO Historical LMR Provider 02/14/17 Additional Source Comments The information contained in this document represents components of the legal health record. It is not the complete legal health record.[facility]
--- OUTSIDE RECORDS SUMMARY | 2025-01-08 14:17 | XMS_ITS | Encounter Summary ---
Author Organization [facility] Address [address] [place] [address] Phone Care Team Providers Care Hot Dog Vendor Name Role Phone Ej Ackerman DO Unavailable Vanessa Gabriel CONE CLASSIFIER TENDER Unavailable Pam Winston CONE CLASSIFIER TENDER Unavailable [phone] Christina Zelaya MD Unavailable Nita Small DO Unavailable Monica Gardner CONE CLASSIFIER TENDER Unavailable [phone] Ej Ackerman DO Primary Care Provider [phone] Encounter Details Date Type Department Care Team (Late st Contact Info) Description 03/03/[address] [address] Social History Tobacco Use Types Packs/Day Years [...] st Contact Info) Description 04/06/2024 Procedure Pass [address] [address] 04/15/2025 10:30 AM EST Appointment [address] [address] Ej Ackerman DO 179 [facility] [place] [address] [place] [address] documented as of this encounter Visit Diagnoses Not on filedocumented in this encounter Care Teams Hot Dog Vendor Relationship Specialty Start Date End Date Ej Ackerman DO PCP - General 05/05/17 Ej Ackerman DO Historical LMR Provider 02/14/17 Vanessa Gabriel, CONE CLASSIFIER TENDER [address] [place] [address] [email or web address] Historical LMR Provider 02/14/17 2 Pam Winston NP [address] [place] [address] Historical LMR Provider 02/14/17 2 Christina Zelaya MD [address] [place] [address] [address] [place] [address] Historical LMR Provider 02/14/17 05/09/21 Nita Small DO [address] [place] [address] Historical LMR Provider 02/14/17 2 Monica Gardner NP [address] [place] [address] Historical LMR Provider 02/14/17 2 documented as of this encounter Additional Source Comments The information contained in this document represents components of the legal health record. It is not the complete legal health record.[facility]
--- OUTSIDE RECORDS SUMMARY | 2025-01-08 14:17 | XMS_ITS | Encounter Summary ---
Author Organization [facility] Address [address] [place] [address] Phone Care Team Providers Care Director Equipment Name Role Phone Ej Ackerman Unavailable Meka Ej Garcia Primary Care Provider [phone] Encounter Details Date Type Department Care Team (Late st Contact Info) Description 04/21/2023 Procedure Pass [facility], [facility] [address] [place] [address] Social History Tobacco Use Types Packs/Day Years Used Date Smoking Tobacco: Former Cigarettes 0.3 10 0 05/02/1982 - 05/02/1992 Smokeless Tobacco: Never Alcohol Use Standard Drinks/Week Comments Not Currently [...] st Contact Info) Description 04/06/2024 Procedure Pass [address] [address] 04/15/2025 10:30 AM EST Appointment [address] [address] Ej Ackerman DO 179 [facility] [place] [address] [place] [address] [email or web address] documented as of this encounter Visit Diagnoses Not on filedocumented in this encounter Care Teams Director Equipment Relationship Specialty Start Date End Date Ej Ackerman DO PCP - General 05/05/17 Ej Ackerman DO Historical LMR Provider 02/14/17 documented as of this encounter Additional Source Comments The information contained in this document represents components of the legal health record. It is not the complete legal health record.[facility]
--- OUTSIDE RECORDS SUMMARY | 2025-01-08 14:17 | XMS_ITS | Encounter Summary ---
Author Organization [facility] Address [address] [place] [address] Phone Care Team Providers Care Strategy Planning Consultant Name Role Phone ReinaEj chau Radha HOU Unavailable Ej Ackerman DO Primary Care Provider [phone] Encounter Details Date Type Department Care Team (Late st Contact Info) Description 04/20/2023 Transcribe Orders Virtual Department [address] [place] [address] Ej Ackerman DO 179 [facility] [place] [address] [place] [address] [email or web address] Left hip pain (Primary Dx); Breast screening Social History Tobacco Use Types Packs/Day Years [...] st Contact Info) Description 04/06/2024 Procedure Pass [address] [address] 04/15/2025 10:30 AM EST Appointment [address] [address] Ej Ackerman, DO [address] [place] [address] [email or web address] documented as of this encounter Results * [...] Bigda DO IMG MG EXAMS Final Result * XR HIP 2 VW LEFT PLUS PELVIS (05/06/2023 1:45 PM EST) Anatomical Region Laterality Modality Hip, Pelvis Computed Radiogr aphy 05/08/2023 11:4 1 PM EST Impressions 05/08/2023 11:43 PM EST Minimal marginal spurring at the hip joints, may reflect very early degenerative change. Mild sacroiliac joint degenerative change. Narrative 05/08/2023 11:43 PM EST XR HIP 2 VW LEFT PLUS PELVIS Referring clinician's provided indication for this examination in Epic: Outside Radiology Order; LEFT HIP PAIN COMPARISON: None FINDINGS: PELVIS: Pelvic ring intact. No displaced fracture. Degenerative changes of the lower lumbar spine, sacroiliac joints, and pubic symphysis. RIGHT HIP: Minimal marginal spurring. Joint space preserved. LEFT HIP: Minimal marginal spurring. Joint space preserved. Procedure Note Markus Lorenzana MD - 05/08/2023 XR HIP 2 VW LEFT PLUS PELVIS Referring clinician's provided indication for this examination in Epic:Outside Radiology Order; LEFT HIP PAIN COMPARISON: None FINDINGS: PELVIS: Pelvic ring intact. No displaced fracture. Degenerative changes ofthe lower lumbar spine, sacroiliac joints, and pubic symphysis. RIGHT HIP: Minimal marginal spurring. Joint space preserved. LEFT HIP: Minimal marginal spurring. Joint space preserved. IMPRESSION: Minimal marginal spurring at the hip joints, may reflect very earlydegenerative change. Mild sacroiliac joint degenerative change. us Ej A Bigda DO IMG XR PELVIS Final Result documented in this encounter Visit Diagnoses Diagnosis Left hip pain- Primary Pain in joint, pelvic region and thigh Breast screening Breast screening, unspecified Left hip pain Pain in joint, pelvic region and thigh Breast screening Breast screening, unspecified documented in this encounter Care Teams Strategy Planning Consultant Relationship Specialty Start Date End Date Ej Ackerman DO PCP - General 05/05/17 Ej Ackerman DO Historical LMR Provider 02/14/17 documented as of this encounter Additional Source Comments The information contained in this document represents components of the legal health record. It is not the complete legal health record.[facility]
--- OUTSIDE RECORDS SUMMARY | 2025-01-08 14:17 | XMS_ITS | Encounter Summary ---
Author Organization [facility] Address [address] [place] [address] Phone Care Team Providers Care Retention Manager Name Role Phone Ej Ackerman DO Unavailable Vanessa Gabriel PATCH WASHER Unavailable Pam Winston PATCH WASHER Unavailable [phone] Christina Zelaya MD Unavailable Nita Small DO Unavailable [phone] Monica Gardner PATCH WASHER Unavailable [phone] Ej Ackerman DO Primary Care Provider [phone] Encounter Details Date Type Department Care Team (Late st Contact Info) Description 04/13/2019 Procedure Pass [address] [address] Social History Tobacco Use Types Packs/Day Years [...] st Contact Info) Description 04/06/2024 Procedure Pass [address] [address] 04/15/2025 10:30 AM EST Appointment [address] [address] Ej Ackerman DO [address] [facility] [place] [address] [place] [address] documented as of this encounter Visit Diagnoses Not on filedocumented in this encounter Care Teams Retention Manager Relationship Specialty Start Date End Date Ej Ackerman DO PCP - General 05/05/17 Ej Ackerman DO Historical LMR Provider 02/14/17 Vanessa Gabriel, PATCH WASHER [address] [place] [address] [email or web address] Historical LMR Provider 02/14/17 2 Pam Winston, RADHA [address] [place] [address] Historical LMR Provider 02/14/17 2 Christina Zelaya MD [address] [place] [address] Historical LMR Provider 02/14/17 05/09/21 Nita Small DO [address] [place] [address] Historical LMR Provider 02/14/17 2 Monica Gardner NP [address] [place] [address] Historical LMR Provider 02/14/17 2 documented as of this encounter Additional Source Comments The information contained in this document represents components of the legal health record. It is not the complete legal health record.[facility]
--- OUTSIDE RECORDS SUMMARY | 2025-01-08 14:17 | XMS_ITS | Encounter Summary ---
Author Organization [facility] Address [address] [place] [address] Phone Care Team Providers Care Welder Apprentice Arc Name Role Phone Ej Ackerman DO Unavailable Vanessa Gabriel HUMAN RESOURCES BENEFITS MANAGER Unavailable Pam Winston HUMAN RESOURCES BENEFITS MANAGER Unavailable [phone] Christina Zelaya MD Unavailable Nita Small DO Unavailable [phone] Monica Gardner HUMAN RESOURCES BENEFITS MANAGER Unavailable [phone] Ej Ackerman DO Primary Care Provider [phone] Reason for Referral * MRI/CAT Scan - Closed Specialty Diagnoses / Procedures Referred By Rogerio veronica Referred To Contact Radiology Diagnoses 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 Procedures MRI Knee (Left) Ej Ackerman DO Phone: tel: fax: [email or web address] Referral ID Status Reason Start Date Expiration Date Visits Re quested Visits Authorized [id number] Closed 09/16/2017 09/16/2018 1 1 Encounter Details Date Type Department Care Team ([facility] st Contact Info) Description 09/16/2017 Ancillary Orders [facility] [place] Department [address] [place] [address] Ej Ackerman DO [address] [place] [address] [email or web address] 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 No additional meniscal or ligamentous tears identified. Joint effusion and popliteal cyst. Patellofemoral degenerative change. POS - [id number] Narrative 09/29/2017 11:03 AM EDT TECHNIQUE: Exam performed on a 1.5 Skye high-field MRI scanner. Axial proton density with fat suppression, coronal proton density with fat suppression, sagittal T1, oblique sagittal proton density and proton density with fat suppression parallel to the plane of the ACL sequences were obtained. FINDINGS: Comparison is made with the radiographic study of 07/26/2017. There is maceration and complex tearing of the posterior horn of the medial meniscus with with involvement of the superior and inferior articular surface is near the mid body. Lateral meniscus and anterior horn of the medial meniscus appear to be grossly intact. No displaced meniscal fragment demonstrated. Cruciate ligaments are intact. There is slight outward bowing of the MCL due to underlying meniscal prolapse but the MCL and lateral collateral ligamentous complex appear to be intact. Popliteus, infrapatellar, and visualized portions of the distal quadriceps tendons are intact. There is thinning of and irregular signal within the patellar hyaline cartilage. A small to moderate sized joint effusion is present. There is a popliteal cyst measuring approximately 2.6 x 2.2 cm in axial dimensions and at least 5.2 cm in length. No soft tissue mass identified. No discrete osteochondral defect or significant abnormality of skeletal marrow signal are noted. There is minimal prepatellar soft tissue edema. Procedure Note Gabriel Pierce MD - 09/29/2017 TECHNIQUE: Exam performed on a 1.5 Skye high-field MRI scanner. Axialproton density with fat suppression, coronal proton density with fatsuppression, sagittal T1, oblique sagittal proton density and protondensity with fat suppression parallel to the plane of the ACL sequenceswere obtained. FINDINGS: Comparison is made with the radiographic study of 07/26/2017. There ismaceration and complex tearing of the posterior horn of the medialmeniscus with with involvement of the superior and inferior articularsurface is near the mid body. Lateral meniscus and anterior horn of themedial meniscus appear to be grossly intact. No displaced meniscalfragment demonstrated. Cruciate ligaments are intact. There is slightoutward bowing of the MCL due to underlying meniscal prolapse but the MCLand lateral collateral ligamentous complex appear to be intact.Popliteus, infrapatellar, and visualized portions of the distal quadricepstendons are intact. There is thinning of and irregular signal within the patellar hyalinecartilage. A small to moderate sized joint effusion is present. There tenisha popliteal cyst measuring approximately 2.6 x 2.2 cm in axial dimensionsand at least 5.2 cm in length. No soft tissue mass identified. Nodiscrete osteochondral defect or significant abnormality of skeletalmarrow signal are noted. There is minimal prepatellar soft tissueedema. IMPRESSION: IMPRESSION: Tearing and maceration of the posterior horn of the medialmeniscus. No additional meniscal or ligamentous tears identified. Jointeffusion and popliteal cyst. Patellofemoral degenerative change. 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 documented in this encounter Care Teams Welder Apprentice Arc Relationship Specialty Start Date End Date Meka Ej DO Radha PCP - General 05/05/17 Ej Ackerman DO Historical LMR Provider 02/14/17 Vanessa Gabriel NP [address] [place] [address] [email or web address] Historical LMR Provider 02/14/17 2 Pam Winston NP [address] [place] [address] Historical LMR Provider 02/14/17 2 Christina Zelaya MD [address] [place] [address] [address] [place] [address] Historical LMR Provider 02/14/17 05/09/21 Nita Small DO [address] [place] [address] Historical LMR Provider 02/14/172 2 Monica Gardner NP [address] [place] [address] Historical LMR Provider 02/14/17 2 documented as of this encounter Additional Source Comments The information contained in this document represents components of the legal health record. It is not the complete legal health record.[facility]
--- OUTSIDE RECORDS SUMMARY | 2025-01-08 14:17 | XMS_ITS | Encounter Summary ---
Author Organization [employer] Address [address] [place] [address] [address] [place] [address] Care Team Providers Care Wage Analyst Name Role Phone PcpJohnny Unassigned Primary Care Provider U navailable Encounter Details Date Type Department Care Team (Late st Contact Info) Description 06/15/2024 Orders Only [facility] DENTAL [address] [place] [address] Brady Armendariz Jr., DMD [address] [place] [address] Social History Tobacco Use Types Packs/Day Years [...] Care Team (Late st Contact Info) Description 05/16/2025 9:40 AM EST Office Visit [facility] DENTAL [address] [place] [address] Ant Saldana documented as of this encounter Visit Diagnoses Not on filedocumented in this encounter Care Teams Wage Analyst Relationship Specialty Start Date End Date Johnny Lorenzo Unassigned PCP - General Family Medicine 08/30/22 documented as of this encounter
--- OUTSIDE RECORDS SUMMARY | 2025-01-08 14:17 | XMS_ITS | Encounter Summary ---
Author Organization [facility] Address [address] [place] [address] Phone Care Team Providers Care Sweep Molder Name Role Phone ReinaEj chau Unavailable Ej Ackerman DO Primary Care Provider [phone] Encounter Details Date Type Department Care Team (Late st Contact Info) Description 05/20/2022 Transcribe Orders Virtual Department [address] [place] [address] Ej Ackerman DO [address] [facility] [place] [address] [place] [address] [email or web address] Breast screening (Primary Dx) Social History Tobacco Use Types Packs/Day Years [...] st Contact Info) Description 04/06/2024 Procedure Pass [address] [address] 04/15/2025 10:30 AM EST Appointment [address] [place] [address] Ej Ackerman DO [address] [facility] [place] [address] [place] [address] documented as of this encounter Results * BI MAMMOGRAM SCREENING WITH TOMOSYNTHESIS WITH CAD (BILATERAL) (05/26/2022 10:51 AM EST) Anatomical Region Laterality Modality Breast Left, Breast Right, Breast Bilateral Bila teral Mammography 05/28/2022 4:06 PM EST Impressions 05/28/2022 4:35 PM EST No mammographic signs of malignancy. Annual screening is recommended. BI-RADS CATEGORY: 1 - Negative. DENSITY: There are scattered fibroglandular densities. Narrative 05/28/2022 4:35 PM EST Bilateral mammography is performed in conjunction with computed aided detection. 3-D tomography along with 2-D C view imaging was also performed. Comparison made to previous dated as far back as 04/01/2003 and as recent as 04/07/2021. No suspicious masses, areas of architectural distortion or suspicious microcalcifications. Procedure Note Stanislav Alatorre MD - 05/28/2022 Bilateral mammography is performed in conjunction with computed aideddetection. 3-D tomography along with 2-D C view imaging was alsoperformed. Comparison made to previous dated as far back as 04/01/2003 andas recent as 04/07/2021. No suspicious masses, areas of architectural distortion or suspiciousmicrocalcifications. IMPRESSION: No mammographic signs of malignancy. Annual screening is recommended. BI-RADS CATEGORY: 1 - Negative. DENSITY: There are scattered fibroglandular densities. us Ej Ackerman DO IMG MG EXAMS Final Result documented in this encounter Visit Diagnoses Diagnosis Breast screening- Primary Breast screening, unspecified Breast screening Breast screening, unspecified documented in this encounter Care Teams Sweep Molder Relationship Specialty Start Date End Date Ej Ackerman DO PCP - General 05/05/17 Ej Ackerman DO Historical LMR Provider 02/14/17 documented as of this encounter Additional Source Comments The information contained in this document represents components of the legal health record. It is not the complete legal health record.[facility]
--- OUTSIDE RECORDS SUMMARY | 2025-01-08 14:17 | XMS_ITS | Clinical Summary ---
Author Organization [employer] Address [address] [place] [address] 7 [place] [address] Care Team Providers Care Director Of Corporate Sponsorships Name Role Phone PcpJohnny Unassigned Primary Care [...] Other reaction(s): stomach upset Torsemide 05/05/2022 Black [place] Flavoring Agent (Non-Screening) Anaphylaxis,Swelling High 04/07/2017 Walnuts, throat closes Medications Fluticasone Furoate-Vilanter ol (Breo Ellipta) 100-25 MCG/ACT aerosol powder Inhale. 0 Active montelukast (Singulair) 5 MG chewable tablet Acti ve montelukast (Singulair) 10 MG tablet Singulair Active valsartan (Diovan) 160 MG tablet Valsartan Active pyridoxine (Vitamin B-6) 100 MG tablet Daily, 0 Refills, Maintenance, 11/20/21 6:55:00 EDT, Partial fill upon patient request if the prescription is for a schedule II opioid drug. 2 Active cholecalciferol (Vitamin D-3) 1.25 MG (16465 UT) capsule Take 25 mcg by mouth. 2 Active albuterol 108 (90 Base) MCG/ACT inhaler if needed. Act dayna albuterol 108 (90 Base) MCG/ACT inhaler if needed. 2 Active ARIPiprazole (Abilify) 10 MG tablet 2 Active ARIPiprazole (Abilify) 10 MG tablet aripiprazole 10 mg tablet Active diazePAM (Valium) 5 MG tablet Take 5 mg by mouth at bedtime. 2 Active montelukast (Singulair) 10 MG tablet montelukast 10 mg tablet TAKE 1 TABLET BY MOUTH EVERY DAY 0 Active valsartan (Diovan) 160 MG tablet Take 160 mg by mouth in the morning. 2 Active rosuvastatin (Crestor) 10 MG tablet Take 10 mg by mouth in the morning. 3 Active Nystop 417579 UNIT/GM powder APPLY TO THE AFFECTED AREA TOPICALLY TWICE DAILY 3 Active gemfibrozil (Lopid) 600 MG tablet Take 600 mg by mouth 2 times daily. 3 Active buPROPion XL (Wellbutrin XL) 150 MG 24 hr tablet Take 150 mg by mouth in the morning. 3 Active cholecalciferol (Vitamin D-3) 10 MCG (400 UNIT) tablet Inhale 1 puff every day by inhalation route as directed for 90 days. 3 Active chlorhexidine (Peridex) 0.12 % solution 3 Active diazePAM (Valium) 5 MG tablet Take [...] TOPICALLY TO THE AFFECTED AREA EVERY DAY 3 Active buPROPion XL (Wellbutrin XL) 300 MG 24 hr tablet Take 1 tablet by mouth in the morning. Active montelukast (Singulair) 10 MG tablet Take 10 mg by mouth. 0 Active meloxicam (Mobic) 15 MG tablet TAKE 1 TABLET BY MOUTH DAILY AFTER A MEAL 5 Active Encounters Date Type Department Care Team Description 12/27/2024 9:00 AM EDT Office Visit [facility] DENTAL [address] [place] [address] Paige Rosales LLD 12/06/2024 9:30 AM EDT Office Visit [facility] DENT[facility] [address] [place] [address] Paige Rosales LLD Fractured dental confucianism with loss of material (Primary Dx) 11/08/2024 3:00 PM EDT Office Visit [facility] DENT[facility] [address] [place] [address] Ant Saldana Fractured dental confucianism with loss of material (Primary Dx); 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 2017 classification; Encounter for dental examination 10/25/2024 10:00 AM EDT Office Visit [facility] DENTAL [address] [place] [address] Paige Rosales LLD Fractured dental confucianism with loss of material (Primary Dx) 10/08/2024 9:30 AM EDT Office Visit [facility] DENT[facility] [address] [place] [address] Paige Rosales LLD from Last 3 Months [...] not to disclose 2022 10:00 AM EST Last Filed Vital Signs Vital Sign Reading Time Taken Comments Blood Pressure 138/86 12/27/2024 9:07 AM EDT Pulse 65 12/27/2024 9:07 AM EDT Temperature - - Respiratory Rate - - Oxygen Saturation - - Inhaled Oxygen Concentration - - Weight - - Height - - Body Mass Index - - Plan of Treatment Upcoming Encounters Date Type Department Care Team (Late st Contact Info) Description 05/16/2025 9:40 AM EST Office Visit [facility] D[facility] [address] [place] [address] Ant Saldana Health Maintenance Due Date Last Done Comments CT Colonography 1965 Colonoscopy 1965 Colorectal Cancer Screening 1965 Depression Screening 1965 FIT DNA/Cologuard 1965 FIT 1965 FOBT 1965 HIV Screening 1965 Lipid Panel 1965 SDOH Screening 1965 Sigmoidoscopy 1965 Disability Screening 1965 Alcohol/Substance Use Screening 1977 Hepatitis C [...] Influenza Vaccine (#1) 2024 Dental Oral Exam 05/12/2025 11/08/2024, , 09/09/2023, Additional history exists Dental Prophylaxis 05/12/2025 11/08/2024, 1 05/21/2023, 09/09/2023, Additional history exists Mammogram 06/29/2025 06/29/2023, 06/03, 05/26/2022, Additional history exists Dental X-Ray: Bitewings 10/26/2025 10/26/19, 03/21/2024, 08/18/2022, Additional history exists Tobacco Screening 11/08/2025 11/08/2024 Dental X-Ray: Full Mouth 03/22/2027 024, 06/18/2021, [...] patient's age to complete this topic Meningococcal B Vaccine Aged Out No l onger eligible based on patient's age to complete [...] PRESENTATION, DETAILED AND EXTENSIVE TREATMENT PLANNING Routine 12/27/2024 9:00 AM EDT 21 DB(V) RESIN-BASED COMPOSITE - 2 SURF, POSTERIOR Routine 12/27/2024 9:00 AM EDT CASE PRESENTATION, DETAILED AND EXTENSIVE TREATMENT PLANNING Routine 12/06/2024 9:30 AM EDT 12 MOBL RESIN-BASED COMPOSITE - 4+ SURF, POSTERIOR Routine 12/06/2024 9:30 AM EDT Fractured dental confucianism with loss of material CASE PRESENTATION, DETAILED AND EXTENSIVE TREATMENT PLANNING Routine 11/08/2024 3:00 PM EDT ORAL HYGIENE INSTRUCTIONS Routine 11/08/2024 3:00 PM EDT Full PROPHYLAXIS - ADULT Routine 025 3:00 PM EDT PERIODIC ORAL EVALUATION - ESTABLISHED PATIENT Routine 11/08/2024 3:00 PM EDT CASE PRESENTATION, DETAILED AND EXTENSIVE TREATMENT PLANNING Routine 10/25/2024 10:00 AM EDT BITEWING - SINGLE RADIOGRAPHIC IMAGE Routine 10/25/2024 10:00 AM EDT 12 INTRAORAL - PERIAPICAL FIRST RADIOGRAPHIC IMAGE Routine 10/25/2024 10:00 AM EDT 12 LIMITED ORAL EVALUATION - PROBLEM FOCUSED Routine 10/25/2024 10:00 AM EDT CASE PRESENTATION, DETAILED AND EXTENSIVE TREATMENT PLANNING Routine 10/08/2024 9:30 AM EDT 18,19,20,30,31 MANDIBULAR PARTIAL DENTURE - RESIN BASE (INCLUDING, RETENTIVE/CLASPING MATERIALS, RESTS, AND TEETH) Routine 10/08/2024 9:30 AM EDT 3,4,7,10,13,14,15,2 MAXILLARY PARTIAL DENTURE - RESIN BASE (INCLUDING, RETENTIVE/CLASPING MATERIALS, RESTS, AND TEETH) Routine 10/08/2024 9:30 AM EDT INTRAORAL - COMPLETE SERIES OF RADIOGRAPHIC IMAGES Routine 03/21/2024 9:40 AM EST from Last 3 Months or Most Recently Relevant to Health Maintenance Insurance [place] ST[place] ADULT DENTAL - N FULL (MEDICAID) Care Teams Director Of Corporate Sponsorships Relationship Specialty Start Date End Date Johnny Lorenzo Unassigned PCP - General Family Medicine 08/30/22
--- OUTSIDE RECORDS SUMMARY | 2025-01-08 14:17 | XMS_ITS | Encounter Summary ---
Author Organization [facility] Address [address] [place] [address] Phone Care Team Providers Care Plaster Foreman Name Role Phone Ej Ackerman DO Unavailable Vanessa Gabriel SULFUR BURNER Unavailable Pam Winston SULFUR BURNER Unavailable [phone] Christina Zelaya MD Unavailable Nita Small DO Unavailable Monica Gardner SULFUR BURNER Unavailable [phone] Ej Ackerman DO Primary Care Provider [phone] Encounter Details Date Type Department Care Team (Late st Contact Info) Description 09/16/2017 Procedure Pass [address] [address] Social History Tobacco Use Types Packs/Day Years [...] (Late st Contact Info) Description 04/06/[address] [address] 04/15/2025 10:30 AM EST Appointment [facility] [address] [place] [address] Ej Ackerman DO [address] [place] [address] documented as of this encounter Visit Diagnoses Not on filedocumented in this encounter Care Teams Plaster Foreman Relationship Specialty Start Date End Date Ej Ackerman DO PCP - General 05/05/17 Ej Ackerman DO Historical LMR Provider 02/14/17 Vanessa Gabriel NP [address] [place] [address] [email or web address] Historical LMR Provider 02/14/17 2 Pam Winston NP [address] [place] [address] Historical LMR Provider 02/14/17 2 Christina Zelaya MD [address] [place] [address] Historical LMR Provider 02/14/17 05/09/21 Nita Small DO [address] [place] [address] Historical LMR Provider 02/14/17 2 Monica Gardner NP [address] [place] [address] Historical LMR Provider 02/14/17 2 documented as of this encounter Additional Source Comments The information contained in this document represents components of the legal health record. It is not the complete legal health record.[facility]
--- OUTSIDE RECORDS SUMMARY | 2025-01-08 14:18 | XMS_ITS | Encounter Summary ---
Author Organization [facility] Address [address] [place] [address] Phone Care Team Providers Care Welder Gas Tungsten Arc Name Role Phone Ej Ackerman DO Unavailable Vanessa Gabriel MANAGER METROLOGY Unavailable Pam Winston MANAGER METROLOGY Unavailable [phone] Christina Zelaya MD Unavailable Nita Small DO Unavailable [phone] Monica Gardner MANAGER METROLOGY Unavailable [phone] Ej Ackerman DO Primary Care Provider [phone] Reason for Referral * MRI/CAT Scan - Closed Specialty Diagnoses / Procedures Referred By Rogerio veronica Referred To Contact Radiology Diagnoses Arm weakness Arm numbness Procedures MRI Cervical Spine Artem Garcia MD Phone: tel: fax: [email or web address] Referral ID Status Reason Start Date Expiration Date Visits Re quested Visits Authorized [id number] Closed 04/13/2019 04/12/2020 1 1 Encounter Details Date Type Department Care Team (Latest Contact Info) Description 04/13/2019 Transcribe Orders [address] [id number] Artem Garcia MD [address] [place] [address], [address] [place] [address] [email or web address] Arm weakness (Primary Dx); Arm numbness Social History Tobacco Use Types Packs/Day Years [...] st Contact Info) Description 04/06/2024 Procedure Pass [address] [address] 04/15/2025 10:30 AM EST Appointment [address] [address] Ej Ackerman, DO [address] [facility] [place] [address] [place] [address] [email or web address] documented as of this encounter Results * MRI CERVICAL SPINE (NEURO) FOCUS WITHOUT CONTRAST (05/04/2019 10:31 AM EST) Anatomical Region Laterality Modality C-spine Magnetic Resonan ce 05/04/2019 5:03 PM EST Impressions 05/04/2019 6:10 PM EST 1. Multilevel degenerative changes of the cervical spine without cord compression. Foraminal stenosis is most pronounced on the left at C3-C4 and bilaterally at C6-C7. 2. The cervical cord is normal in signal. Narrative 05/04/2019 6:10 PM EST MRI CERVICAL SPINE (NEURO) FOCUS WITHOUT CONTRAST Loss of range of motion. Cannot lift arms over the head or behind the back. TECHNIQUE: MRI of the cervical spine was performed without intravenous contrast utilizing sagittal T1, sagittal T2, sagittal STIR, axial gradient echo, and axial T2-weighted sequences. COMPARISON: No prior studies are available for comparison at the time of interpretation. FINDINGS: ALIGNMENT, VERTEBRAE, MARROW, AND DISCS: There is mild reversal of the cervical lordosis. No significant subluxation. The cervical vertebral bodies are normal in height, and a small chronic Schmorl's node extends to the superior endplate of C6. Mild loss of height of C5-C6. Severe loss of height of C6-C7. No marrow edema. Multilevel marginal spurring. Facet arthrosis is most pronounced on the left at C3-C4. POSTERIOR FOSSA AND CORD: The visualized posterior cranial fossa structures and cervicomedullary junction are unremarkable. The cervical cord is normal in signal. There is no cord compression. PARASPINAL TISSUES: Unremarkable. DETAILED FINDINGS BY LEVEL: C2-C3: Minimal central disc protrusion. No central canal or foraminal stenosis. C3-C4: Right facet arthrosis and uncovertebral spurring. No central canal or right foraminal stenosis. Severe left foraminal stenosis. C4-C5: Mild left facet arthrosis. No central canal or right foraminal stenosis. Mild left foraminal narrowing. C5-C6: Mild concentric disc-osteophyte complex with minimal indentation of the ventral thecal sac. Mild-moderate right and mild left foraminal narrowing. C6-C7: Concentric disc-osteophyte complex. Mild central canal narrowing. Severe bilateral foraminal stenosis. C7-T1: No central canal or foraminal stenosis. Procedure Note Chidi Valdez MD - 05/04/2019 MRI CERVICAL SPINE (NEURO) FOCUS WITHOUT CONTRAST Loss of range of motion. Cannot lift arms over the head or behind theback. TECHNIQUE: MRI of the cervical spine was performed without intravenouscontrast utilizing sagittal T1, sagittal T2, sagittal STIR, axial gradientecho, and axial T2-weighted sequences. COMPARISON: No prior studies are available for comparison at the time ofinterpretation. FINDINGS: ALIGNMENT, VERTEBRAE, MARROW, AND DISCS: There is mild reversal of thecervical lordosis. No significant subluxation. The cervical vertebralbodies are normal in height, and a small chronic Schmorl's node extends tothe superior endplate of C6. Mild loss of height of C5-C6. Severe loss ofheight of C6-C7. No marrow edema. Multilevel marginal spurring. Facet arthrosis is mostpronounced on the left at C3-C4. POSTERIOR FOSSA AND CORD: The visualized posterior cranial fossastructures and cervicomedullary junction are unremarkable. The cervicalcord is normal in signal. There is no cord compression. PARASPINAL TISSUES: Unremarkable. DETAILED FINDINGS BY LEVEL: C2-C3: Minimal central disc protrusion. No central canal or foraminalstenosis. C3-C4: Right facet arthrosis and uncovertebral spurring. No central canalor right foraminal stenosis. Severe left foraminal stenosis. C4-C5: Mild left facet arthrosis. No central canal or right foraminalstenosis. Mild left foraminal narrowing. C5-C6: Mild concentric disc-osteophyte complex with minimal indentation ofthe ventral thecal sac. Mild-moderate right and mild left foraminalnarrowing. C6-C7: Concentric disc-osteophyte complex. Mild central canal narrowing.Severe bilateral foraminal stenosis. C7-T1: No central canal or foraminal stenosis. IMPRESSION: 1. Multilevel degenerative changes of the cervical spine without cordcompression. Foraminal stenosis is most pronounced on the left at C3-C4and bilaterally at C6- C7. 2. The cervical cord is normal in signal. Artem Garcia MD G MR XSPECIALTY Final Resu lt documented in this encounter Visit Diagnoses Diagnosis Arm weakness- Primary Other musculoskeletal symptoms referable to limbs Arm numbness Disturbance of skin sensation Arm weakness Other musculoskeletal symptoms referable to limbs Arm numbness Disturbance of skin sensation documented in this encounter Care Teams Welder Gas Tungsten Arc Relationship Specialty Start Date End Date Ej Ackerman DO PCP - General 05/05/17 Ej Ackerman DO Historical LMR Provider 02/14/17 Vanessa Gabriel NP [address] [place] [address] [email or web address] Historical LMR Provider 02/14/17 2 Pam Winston NP [address] [place] [address] Historical LMR Provider 02/14/17 2 Christina Zelaya MD [address] [place] [address] [address] [place] [address] [email or web address] Historical LMR Provider 02/14/17 05/09/21 Nita Small DO [address] [place] [address] Historical LMR Provider 02/14/17 2 Monica Gardner NP [address] [place] [address] Historical LMR Provider 02/14/17 2 documented as of this encounter Additional Source Comments The information contained in this document represents components of the legal health record. It is not the complete legal health record.[facility]
--- OUTSIDE RECORDS SUMMARY | 2025-01-08 14:18 | XMS_ITS | Encounter Summary ---
Author Organization [employer] Address [address] [place] [address] 7 [place] [address] Care Team Providers Care Dairy Technician Name Role Phone PcpJohnny Unassigned Primary Care [...] 05/16/2025 9:40 AM EST Office Visit Johnny [facility] [address] [place] [address] Ant Saldana documented as of this encounter Visit Diagnoses Not on filedocumented in this encounter Care Teams Dairy Technician Relationship Specialty Start Date End Date Johnny Lorenzo Unassigned PCP - General Family Medicine 08/30/22 documented as of this encounter
--- OUTSIDE RECORDS SUMMARY | 2025-01-08 14:18 | XMS_ITS | Encounter Summary ---
Author Organization [employer] Address [address] [place] [address] 7 [place] [address] Care Team Providers Care Utility Locator Name Role Phone Johnny Lorenzo Unassigned Primary Care Provider U navailable Encounter [...] 05/16/2025 9:40 AM EST Office Visit Johnny [facility] [address] [place] [address] Ant Saldana documented as of this encounter Visit Diagnoses Not on filedocumented in this encounter Care Teams Utility Locator Relationship Specialty Start Date End Date Johnny Lorenzo Unassigned PCP - General Family Medicine 08/30/22 documented as of this encounter
--- OUTSIDE RECORDS SUMMARY | 2025-01-08 14:18 | XMS_ITS | Encounter Summary ---
Author Organization [facility] Address [address] [place] [address] Phone Care Team Providers Care Learning Support Specialist Name Role Phone Ej Ackerman DO Unavailable Vanessa Gabriel BRIM ROUNDER Unavailable Pam Winston BRIM ROUNDER Unavailable Christina Zelaya MD Unavailable Nita Small DO Unavailable Monica Gardner BRIM ROUNDER Unavailable Ej Ackerman DO Primary Care Provider [phone] Encounter Details Date Type Department Care Team (Late st Contact Info) Description 12/26/2018 Transcribe Orders Virtual Department [address] [place] [address] Ej Ackerman DO [address] [place] [address] [email or web address] Shoulder pain, unspecified chronicity, unspecified laterality (Primary Dx) Social History Tobacco Use Types [...] st Contact Info) Description 04/06/2024 Procedure Pass [address] [address] 04/15/2025 10:30 AM EST Appointment [address] [address] Ej Ackerman DO [address] [facility] [place] [address] [place] [address] documented as of this encounter Visit Diagnoses Diagnosis Shoulder pain, unspecified chronicity, unspecified laterality- Primary documented in this encounter Care Teams Learning Support Specialist Relationship Specialty Start Date End Date Ej Ackerman DO PCP - General 05/05/17 Ej Ackerman DO Historical LMR Provider 02/14/17 Vanessa Gabriel BRIM ROUNDER [address] [place] [address] [email or web address] Historical LMR Provider 02/14/17 2 Pam Winston NP [address] [place] [address] Historical LMR Provider 02/14/17 2 Christina Zelaya MD [address] [place] [address] [address] [place] [address] Historical LMR Provider 02/14/17 05/09/21 Nita Small DO [address] [place] [address] Historical LMR Provider 02/14/17 2 Monica Gardner NP [address] [place] [address] Historical LMR Provider 02/14/17 2 documented as of this encounter Additional Source Comments The information contained in this document represents components of the legal health record. It is not the complete legal health record.[facility]
--- OUTSIDE RECORDS SUMMARY | 2025-01-08 14:18 | XMS_ITS | Encounter Summary ---
Author Organization [email or web address] Address [address] [place] [address] [address] [place] [address] Care Team Providers Care Voice Network Engineer Name Role Phone Johnny Lorenzo Unassigned Primary [...] Visit Johnny [facility] [address] [place] [address] Ant Saldana documented as of this encounter Visit Diagnoses Not on filedocumented in this encounter Care Teams Voice Network Engineer Relationship Specialty Start Date End Date Johnny Lorenzo Unassigned PCP - General Family Medicine 08/30/22 documented as of this encounter
== END 2025-01-08 11:47 | disposition home or self-care (01) ==
LOC: HO.MANLDS 11:46
PROVIDERS: Visit Provider Internal Medicine
DX: E78.5 Hyperlipidemia, unspecified (principal); I10 Essential (primary) hypertension
CPT/HCPCS: 36415; 80053; 80061; 82306; 85025